=== PATIENT | female | born 1955 | race Caucasian/White ===

== ENCOUNTER → 2017-07-12 | Outpatient (CLI) | payer OTHER ==
[2015-05-20 10:51] VITALS: BMI 33.6
[~2017-07-12] MED LIST: ALB17R INH; ALB6.7R INH; AMLO2.5T74 PO; ARMO250T5 PO; ATOR10TA24 PO; AZI250 PO; AZIT500T47 PO; BACDS PO; BIS5 PO; BUDE10.25 IH; CEP500 PO; CHOL100062 PO; CHOL500045 PO; CIP500 PO; CIPR-212 PO; CIPR500S3 PO; CLON1 PO; CPAP; DIPH-464 PO; DOXY150T6 PO; ENOX40DI8 SQ; EPIN0.3P14 IM; FAMO-67 PO; FAMO20TA28 PO; FENO145T36 PO; FLU10 PO; FLU220R INH; FOLI-68 PO; FUR20 PO; FURO-43 PO; GUAI600T57 PO; GUALA600 PO; HYDR-389 PO; IBUP600T22 PO; LEV500 PO; MAGN296S35 PO; METF-410 PO; NIAC500T84 PO; OFF COUMADIN FOR OR; OMEP-218 PO; OXYC-717 PO; OXYC-865 PO; OXYG1EAC MC; OXYGEN INH; PER PO; PHEN200T32 PO; POTASSIUM PO; PRE10 PO; PRED20TA6 PO; PRO25 PO; ROPI0.5T24 PO; ROPI0.5T25 PO; TIO18R INH; TRI100 FT; WAR5 PO; WARF-1 PO; WARF-12 PO; [UNRECOGNIZED DRUG - OTHER]
[2017-07-12 11:57] LABS: INR 1.7
== END ==
LOC: LAB 11:00
PROVIDERS: ATTEND Family Medicine
DX: D64.9 Anemia, unspecified (principal); D86.0 Sarcoidosis of lung; I10 Essential (primary) hypertension; E11.65 Type 2 diabetes mellitus with hyperglycemia; E55.9 Vitamin D deficiency, unspecified; Z79.01 Long term (current) use of anticoagulants
CPT/HCPCS: 36415; 82040; 82043; 82247; 82306; 82310; 82374; 82435; 82465; 82565; 82947; 83036; 83718; 84075; 84132; 84155; 84295; 84450; 84460; 84478; 84520; 85027; 85610

== ENCOUNTER → 2017-07-12 | Outpatient (CLI) | payer OTHER ==
[2015-05-20 10:51] VITALS: BMI 33.6
--- NOTE | 2017-07-12 12:53 | RADIOLOGY IMAGING REPORT ---
FACILITY: [facility] [place] PATIENT NAME: Karis Fournier : 1955 MR: [id number] V: [id number] EXAM DATE: ORDERING PHYSICIAN: HAI FLETCHER TECHNOLOGIST: Location: [facility] [place] Patient: Karis Fournier : 1955 Visit/Account:[id number] Date of Sevice: 07/12/2017 CHEST W/O CONTRAST History: Pulmonary nodules TECHNIQUE: Contiguous axial images were performed through the chest to the level of the adrenal gla nds. No IV contrast was administered. Coronal and sagittal reformatting was also performed. COMPARISON STUDIES: June 06, 2015. Lungs / Pleura: There is an 8 x 5 mm noncalcified nodule in the lateral sulcus of the right lower l obe best seen on image 82 of series 3 and appears unchanged. There is a 2 mm subpleural nodule later al aspect right lower lobe best seen on image 62. This also appears unchanged There is a 9 mm groundglass opacity in the lateral aspect of the right lower lobe best seen on image 66. This is a new finding when compared to the prior study. The previously noted consolidation in the posterior right upper lobe has resolved. Mediastinum/nodes: Again noted are multiple 10-15 mm mediastinal and hilar lymph nodes appear simila r to the prior study Heart and vessels: Moderate atherosclerotic calcifications are identified in the thoracic aortic arc h and branch vessels. Advanced coronary artery vascular calcifications are present. Musculoskeletal / Body wall: Moderate spondylotic changes of the thoracic spine Upper abdomen: Visualized abdominal viscera negative. IMPRESSION: Previously noted right upper lobe interstitial pulmonary infiltrate has resolved There are pulmonary nodules measuring up to 8 mm that have remained stable For multiple nodules measu ring 6 to 8 mm in size in a low risk patient, CT follow-up is recommended in 3-6 months, then conside r CT at 18-24 months. For a high risk patient, CT follow-up is recommended at 3-6 months, then at 18- 24 months.. There is a 9 mm groundglass opacity lateral right lower lobe not present previously coul d represent a small focal area of inflammation or infection. For groundglass nodules greater than or equal to 6 mm, CT in 6-12 months to confirm persistence is recommended, then CT every 2 years until 5 years is recommended. Mild mediastinal adenopathy unchanged Extensive atherosclerosis Report Dictated By: Jeannette Mario MD at 07/12/2017 12:29 PM Report E-Signed By: Jeannette Mario MD at 07/12/2017 12:49 PM HILDAN:GORDON
== END ==
LOC: CT 00:46
PROVIDERS: ATTEND Internal Medicine
DX: I25.10 Atherosclerotic heart disease of native coronary artery without angina pectoris (principal); R91.8 Other nonspecific abnormal finding of lung field
CPT/HCPCS: 71250

== ENCOUNTER → 2017-08-02 | Outpatient (CLI) | payer OTHER ==
[2015-05-20 10:51] VITALS: BMI 33.6
--- NOTE | 2017-08-02 16:01 | RADIOLOGY IMAGING REPORT ---
FACILITY: [facility] PATIENT NAME: Karis Fournier : 1955 MR: [id number] V: [id number] EXAM DATE: ORDERING PHYSICIAN: HAYDEE SANCHEZ TECHNOLOGIST: Location: [facility] Patient: Karis Fournier : 1955 Visit/Account:[id number] Date of Sevice: 08/02/2017 CAROTID HISTORY: Bilateral carotid bruits, left neck mass COMPARISON: None. FINDINGS: Grayscale, duplex and color Doppler interrogation of the extracranial carotid and vertebral arteries was performed bilateral. On the right, peak systolic velocities within the common and internal carotid arteries are 118 and 89 cm/sec respectively. There is a small amount of hard plaque in the proximal right internal and exte rnal carotid arteries. Antegrade flow within the common, internal and external carotid arteries as w ell as vertebral artery. ICA/CCA ratio 0.7. On the left, peak systolic velocities within the common and internal carotid arteries are 143 and 79 cm/sec respectively. A small amount of plaque is seen in the left internal carotid artery. Antegrad e flow within the common, internal and external carotid arteries as well as vertebral artery. ICA/CCA ratio 0.7. IMPRESSION: Small amount of plaque seen in the internal carotid arteries bilaterally and right external carotid a rtery although no hemodynamically significant lesions seen in the IACs or vertebral arteries. Velocity criteria are extrapolated from diameter data as defined by the Society of Radiologists in [facility] Consensus Conference Radiology 2003; 229;340-346 Report Dictated By: Jeannette Mario MD at 08/02/2017 3:56 PM Report E-Signed By: Jeannette Mario MD at 08/02/2017 3:57 PM WSN:[email or web address]
== END ==
LOC: US 07:04
PROVIDERS: ATTEND Family Medicine
DX: I65.23 Occlusion and stenosis of bilateral carotid arteries (principal)
CPT/HCPCS: 93880

== ENCOUNTER → 2017-12-21 | Outpatient (CLI) | payer OTHER ==
[2015-05-20 10:51] VITALS: BMI 33.6
[~2017-12-21] MED LIST changes: -METF-410 PO; +METF-411 PO
[2017-12-21 14:55] LABS: INR 2.11
== END ==
LOC: LAB 14:13
PROVIDERS: ATTEND Family Medicine
DX: I10 Essential (primary) hypertension (principal); E11.65 Type 2 diabetes mellitus with hyperglycemia; E55.9 Vitamin D deficiency, unspecified; Z79.01 Long term (current) use of anticoagulants; E86.0 Dehydration
CPT/HCPCS: 36415; 82040; 82043; 82247; 82306; 82310; 82374; 82435; 82465; 82565; 82947; 83036; 83718; 84075; 84132; 84155; 84295; 84450; 84460; 84478; 84520; 85027; 85610

== ENCOUNTER → 2018-04-03 | Outpatient (CLI) | payer OTHER ==
[2015-05-20 10:51] VITALS: BMI 33.6
[~2018-04-03] MED LIST changes: -METF-411 PO; +METF-450 PO
== END ==
LOC: US 03:48
PROVIDERS: ATTEND Internal Medicine
DX: R01.1 Cardiac murmur, unspecified (principal); I51.7 Cardiomegaly; I35.1 Nonrheumatic aortic (valve) insufficiency
CPT/HCPCS: 93306

== ENCOUNTER 2018-05-01 09:54 | Outpatient (RCR) | payer OTHER ==
[2015-05-20 10:51] VITALS: BMI 33.6
--- NOTE | 2018-04-11 08:17 | PT INITIAL EVALUATION ---
MEDICAL DIAGNOSIS: R knee pain and swelling TREATMENT DIAGNOSIS: Same, question of R MMT, lateral compartment cartilage tear DATE OF ONSET: 03/27/18 SUBJECTIVE: Karis Fournier presents to PT for R knee pain and swelling after stepping down steps at home, feeling a pop and sharp knee pain.. . Pain location is R anterior, medial and lateral R knee and described as sharp grab, ache. Pain scale is 3 on a ten point pain scale. Pain is worse with shoveling, mopping, trying to use stairs (non-reciprocating gait) and better with rest. REHAB PROBLEM LIST: Increased Pain Decreased ROM Decreased Strength Impaired Transfers Decreased Balance Decreased Mobility Decreased Gait PREVIOUS MEDICAL HISTORY: Chron's disease, R ACL reconstruction, DVT's (Coumadin), hematoma with wound care, septal defect, CPAP with 2 l/min at night OCCUPATION: Artist, self-employed. OBJECTIVE: Posture: WB more through L LE. ROM: A/PROM R knee -10/-10- 110/115 deg. , L knee 0/0- 120/125 degrees. Strength: R quad 4/5, L 5/5. R VMO minimal contraction, lateral tracking patella. Palpation: Painful R MCL, LCL, anterior horn of medial meniscus, lateral patellofemoral joint line. Pain with lateral femoral condyle cartilage palpation. R knee joint line and suprapatellar recess moderate edema. Special Tests: Positive R Tian's for clicking and pain, clicking and pain with lateral patellofemoral glides. Negative R ACL drawer and Lachmann's. Mobility: Sit to stand with R knee pain. Gait: Reduced R LE loading in R stance, shorter R step length. Balance: Double limb support. ASSESSMENT: Karis Fournier presents with possible R MMT, lateral patellar cartilage tear, acute phase of healing. She had knee stiffness with ROM and had less pain with e-stim after. Short Term Goals 4 weeks: Karis uses stairs with a reciprocating gait, R knee pain 1-2/10. 6 weeks: Short distance community ambulator without R knee pain, shovels snow, mops without R knee pain. Patient's Goals Avoid surgery, mop and shovel snow without R knee pain. PLAN: Patient to be seen for Manual Therapy/STM/MET Strengthening/condition Ice/Heat Range of Motion Stretching Neuromuscular Re-ed Electrical Stim Gait Trg/Balance Trg Home Exercise Program 2-3x/week for 6 Weeks Thank you for this referral. If you have any questions, comments, or concerns about this report or plan, please contact me at . [email or web address]
--- NOTE | 2018-05-26 11:39 | PT PLAN OF CARE ---
Physician: Dr. Saqib Corrales Patient is being seen: 2x/week Therapist: Deneen proctor, PT Medical Diagnosis: R knee pain and swelling Treatment Diagnosis: Same, question of R MMT, lateral compartment cartilage tear Date of Onset: 03/27/18 Date of Initial Evaluation: 04/10/18 Date patient was last seen: 05/01/19 Number of treatments: 6 Number of cancellations/No shows: 1 INTERVENTIONS: Manual Therapy Strengthening/condition Range of Motion Stretching Electrical Stim Home Exercise Program GOALS: met: 4 weeks: Karis uses stairs with a reciprocating gait, R knee pain -06/11. 6 weeks: Short distance community ambulator without R knee pain, shovels snow, mops without R knee pain. PATIENT'S GOAL: Avoid surgery, mop and shovel snow without R knee pain. all met Patient Compliance: Excellent Prognosis: Excellent Reasons for continuing therapy: S: Karis denied R knee pain at her last appointment 05/01/18. She was hospitalized for diverticulitis on 05/03/18 and hasn't returned to PT. Her phone didn't go to Search to Phoneil when I tried calling her. O: At her last visit, R knee edema was resolved, gait was normal and Karis was strengthening well. A/P: Karis Fournier did well with R knee PT. She has bigger health concerns right now. I'll DC PT. Thank you. RYAN
== END 2018-05-01 18:00 | disposition home or self-care (01) ==
LOC: PT 09:54
PROVIDERS: ATTEND Orthopaedic Surgery
DX: M25.561 Pain in right knee (principal); M25.469 Effusion, unspecified knee; S83.241A Other tear of medial meniscus, current injury, right knee, initial encounter
CPT/HCPCS: 97162

== ENCOUNTER 2018-05-03 16:58 | Inpatient (IN) | payer OTHER ==
[~2018-05-03] VITALS: Ht 158.8 cm; Wt 101.5 kg
[2018-05-03] MEDS ORDERED: NS(*) 0.9% 1000 ML BAG 1,000 ML IV ONE (17:12)
[2018-05-03] MEDS ORDERED: ONDANSETRON 4 MG/2 ML VIAL IVP ONE (17:15)
--- NOTE | 2018-05-03 17:20 | ER Report ---
History and Physical Time Seen By MD: 17:16 Hx. of Stated Complaint: severe abd pain cathy groin pain (JD ZULUAGA MD) HPI/ROS CHIEF COMPLAINT: Abdominal pain HISTORY OF PRESENT ILLNESS: 62-year-old morbidly obese female history of COPD and obstructive sleep apnea come to the emergency department today with a complaint of abdominal pain. Patient states 2-3 days prior to presentation was startled by her turned abruptly and felt a pop in her abdomen also based on history of colitis. Patient states abdominal pain is been the bilateral lower suprapubic region she said that she's had increased frequency of urination and one episode of loose stool pain is localized again to the right and left iliac and inguinal areas without radiation made worse with motion or mobility she says she is also decreased by mouth intake denies any chest pain at this time denies fever chills or sweats no epigastric or upper bowel discomfort pain is localized down in the inguinal regions. On arrival to the emergency department she was noted to be hypoxic with an O2 saturation at 81-82% she does not use supplem ental home but does use CPAP at night REVIEW OF SYSTEMS: Respiratory: No cough, no dyspnea. Cardiovascular: No chest pain, no palpitations. Gastrointestinal: No vomiting, no abdominal pain. Musculoskeletal: No back pain. Remainder of the 14 system rev: Yes (JD ZULUAGA MD) Allergies: Coded Allergies: levofloxacin (Verified Allergy, Intermediate, hives for 2 wks, 05/03/18) pt was on vancomycin and levaquin at the same time, she got hives that lasted two weeks, pt doesn't know if it was the vancomycin or levaquin that caused the rash vancomycin (Verified Allergy, Intermediate, RASH, 05/03/18) cephalexin (Verified Allergy, Mild, 05/03/18) iodine (Verified Allergy, Mild, 05/03/18) niacin (Verified Adverse Reaction, Intermediate, 05/03/18) Penicillins (Verified Adverse Reaction, Mild, RASH, 05/03/18) metoclopramide (Verified Adverse Reaction, Mild, N&V, 05/03/18) Home Meds Active Scripts Guaifenesin (MUCINEX) 600 Mg Tablet.er, 600 MG PO BID, #30 TAB 0 Refills Prov:JAVON JIANG MD 06/04/15 Folic Acid (FOLIC ACID) 1 Mg Tablet, 1 MG PO BID, #60 TAB 1 Refill Prov:JAVON JIANG MD 06/04/15 Reported Medications Varenicline Tartrate (CHANTIX) 0.5 Mg Tab, 1 MG PO BID, TAB 05/03/18 Metformin Hcl (METFORMIN HCL) 500 Mg Tablet, 0.5 TAB PO DAILY, TAB 05/03/18 Diphenhydramine Hcl (BENADRYL) 25 Mg Capsule, 25 MG PO BID, CAPSULE 05/03/18 Atorvastatin Calcium (LIPITOR) 10 Mg Tablet, 1 TAB PO QDAY, TAB 07/25/15 Tiotropium [place] (SPIRIVA) 18 Mcg/Cap Inh, 18 MCG INH DAILY, INH 07/25/15 Cholecalciferol (Vitamin D3) (VITAMIN D) 10,000 Unit Capsule, 67659 UNIT PO QWEEKF, CAPSULE 05/19/15 Budesonide/Formoterol Fumarate (SYMBICORT 80-4.5 MCG INHALER) 10.2 Gm Hfa.aer.ad, 10.2 GM IH BID, #2 PUFF 01/16/15 Fenofibrate Nanocrystallized (FENOFIBRATE) 145 Mg Tablet, 145 MG PO QDAY 01/16/15 Warfarin Sodium (COUMADIN) 5 Mg Tablet, 4.5 MG PO QDAY 01/16/15 Amlodipine Besylate (Amlodipine Besylate) 2.5 Mg Tablet, 2.5 MG PO BID, 0 Refills 03/17/11 Furosemide (Lasix) 20 Mg Tab, 20 MG PO QDAY, 0 Refills 03/17/11 Albuterol Sulfate (Proventil Hfa) 6.7 Gm Aer.w.adap, 1-2 PUFF INH QID PRN for SHORTNESS OF BREATH, 0 Refills 03/17/11 Armodafinil (Nuvigil) 250 Mg Tablet, 250 MG PO QDAY, 0 Refills 03/17/11 Discontinued Reported Medications Ibuprofen (IBUPROFEN) 600 Mg Tablet, 1 TAB PO TID PRN for pain, #30 TAB 08/04/15 Phenazopyridine Hcl (PHENAZOPYRIDINE HCL) 200 Mg Tablet, 200 MG PO TID PRN for dysuria, #20 TAB 08/04/15 Famotidine (PEPCID) 20 Mg Tablet, 20 MG PO BID for antacid, #20 TAB 08/04/15 Famotidine (FAMOTIDINE) 20 Mg Tablet, 20 MG PO QDAY, TAB 08/04/15 Acetaminophen/Hydrocodone (HYDROCODON-ACETAMINOPH 7.5-325) 1 Each Ea, 1 EACH PO Q4-6H PRN for pain, #20 EA 08/04/15 Trimethoprim (TRIMETHOPRIM) 100 Mg Tab, 100 MG FT BID, #20 TAB 08/04/15 Past Medical/Surgical History (1) DELILAH on CPAP Status: Chronic (2) DVT (deep venous thrombosis) Status: Chronic (3) PE (pulmonary embolism) Status: Chronic (4) Septal defect, heart Status: Chronic (5) Essential (primary) hypertension Status: Chronic (6) COPD (chronic obstructive pulmonary disease) Status: Chronic (7) Crohns disease Status: Chronic (8) History of cholecystectomy Status: Chronic (9) History of appendectomy Status: Chronic (10) History of hysterectomy Status: Chronic (KATHIA PARADA DO) Reviewed Nurses Notes: Yes Old Medical Records Reviewed: Yes (JD ZULUAGA MD) Hx Smoking: Yes (1 PPD X 40 YRS.) Smoking Status: Current: Every Day Smoker Exposure to Second Hand Smoke?: No Hx Substance Use Disorder: No Hx Alcohol Use: No (JD ZULUAGA MD) Constitutional Vital Sign - Last 24 Hours 05/03/18 05/03/18 05/03/18 05/03/18 16:58 17:07 17:07 17:09 Temp 100.0 Pulse 111 109 Resp 26 24 B/P (MAP) 166/70 (102) 166/70 Pulse Ox 79 79 O2 Delivery Room Air Room Air O2 Flow Rate 6.0 05/03/18 05/03/18 05/03/18 05/03/18 17:15 17:28 17:30 17:58 Pulse 93 88 Resp 29 24 B/P (MAP) 144/60 (88) 143/62 (89) Pulse Ox 95 96 O2 Delivery Oxy Mask Oxy Mask O2 Flow Rate 6 6 05/03/18 05/03/18 05/03/18 05/03/18 18:00 18:05 18:30 18:35 Pulse 96 97 Resp 29 25 B/P (MAP) 135/59 (84) 142/65 (90) Pulse Ox 96 91 O2 Delivery Oxy Mask Oxy Mask O2 Flow Rate 3 3 05/03/18 05/03/18 05/03/18 05/03/18 18:40 18:55 19:00 19:10 Pulse 96 95 90 Resp 24 21 23 B/P (MAP) 146/73 (97) Pulse Ox 93 94 92 O2 Delivery Oxy Mask Oxy Mask Oxy Mask O2 Flow Rate 3 3 3 05/03/18 05/03/18 05/03/18 05/03/18 19:15 19:30 19:45 20:00 Pulse 98 93 86 94 Resp 20 25 37 19 B/P (MAP) 142/77 (98) 138/61 (86) Pulse Ox 89 91 91 91 O2 Delivery Oxy Mask Oxy Mask Oxy Mask Oxy Mask O2 Flow Rate 3 3 3 3 05/03/18 20:05 Pulse 92 Resp 21 Pulse Ox 92 O2 Delivery Oxy Mask O2 Flow Rate 3 (KATHIA PARADA DO) Physical Exam General Appearance: The patient is alert, has no immediate need for airway protection and no current signs of toxicity. In no distress but appears uncomfortable Eyes: Pupils equal and round no injection. Respiratory: Chest is non tender, lungs are clear to auscultation. Cardiac: regular rate and rhythm [ ] Gastrointestinal: Abdomen examination does demonstrate some tenderness to the bilateral lower inguinal area mild guarding no rebound no masses noted normal bowel sounds opening the epigastrium or other 3 quadrants patient otherwise negative examination Musculoskeletal: Neck: Neck is supple and non tender. Extremities have full range of motion and are non tender. Skin: No rashes or lesions. [ ] DIFFERENTIAL DIAGNOSIS: After history and physical exam differential diagnosis was considered for perfect bowel ischemic bowel traumatic bowel perforation (JD ZULUAGA MD) Medical Decision Making Data Points Result Diagram: 05/03/18 1722 05/03/18 1722 Laboratory Hematology Test 05/03/18 17:22 05/03/18 17:50 05/03/18 18:40 Red Blood Count 5.24 M/uL (4.17-5.56) Mean Corpuscular Volume 88.7 fL (80.0-96.0) Mean Corpuscular Hemoglobin 30.0 pg (26.0-33.0) Mean Corpuscular Hemoglobin Concent 33.8 g/dL (32.0-36.0) Red Cell Distribution Width 14.9 % (11.5-14.5) Mean Platelet Volume 7.8 fL (7.2-11.1) Neutrophils (%) (Auto) 86.6 % (39.4-72.5) Lymphocytes (%) (Auto) 6.6 % (17.6-49.6) Monocytes (%) (Auto) 6.2 % (4.1-12.4) Eosinophils (%) (Auto) 0.1 % (0.4-6.7) Basophils (%) (Auto) 0.5 % (0.3-1.4) Nucleated RBC Relative Count (auto) 0.0 /100WBC Neutrophils # (Auto) 13.2 K/uL (2.0-7.4) Lymphocytes # (Auto) 1.0 K/uL (1.3-3.6) Monocytes # (Auto) 0.9 K/uL (0.3-1.0) Eosinophils # (Auto) 0.0 K/uL (0.0-0.5) Basophils # (Auto) 0.1 K/uL (0.0-0.1) Nucleated RBC Absolute Count (auto) 0.00 K/uL Peripheral Blood Smear Yes Y/N Prothrombin Time 19.1 seconds (12.0-14.4) Prothromb Time International Ratio 1.59 Activated Partial Thromboplast Time 42 seconds (23-35) D-Dimer Quantitative (PE/DVT) 0.68 ug/ml (0-0.50) Sodium Level 137 mmol/L (137-145) Potassium Level 3.7 mmol/L (3.5-5.0) Chloride Level 105 mmol/L (98-107) Carbon Dioxide Level 23 mmol/L (22-31) Blood Urea Nitrogen 20 mg/dl (7-18) Creatinine 1.20 mg/dl (0.52-1.04) Glomerular Filtration Rate Calc 45.7 Random Glucose 132 mg/dl (75-110) Lactate 1.7 mmol/L (0.7-2.1) Calcium Level 9.9 mg/dl (8.4-10.2) Total Bilirubin 1.7 mg/dl (0.2-1.3) Aspartate Amino Transf (AST/SGOT) 21 U/L (0-35) Alanine Aminotransferase (ALT/SGPT) 23 U/L (0-56) Alkaline Phosphatase 66 U/L (0-126) Troponin I 0.015 ng/ml B-Type Natriuretic Peptide 199 pg/ml (0-100) Total Protein 7.6 g/dl (6.3-8.2) Albumin 4.0 g/dl (3.5-5.0) Lipase 54 U/L (23-300) Blood Gas Puncture Site Left radial Blood Gas Patient Temperature 100 DEGREES Arterial Blood pH 7.38 (7.35-7.45) Arterial Blood Partial Pressure CO2 36 mmHg (32-37) Arterial Blood Partial Pressure O2 94 mmHg (60-80) Arterial Blood HCO3 21 mmol/L (20-26) Arterial Blood Oxygen Saturation 96 % (92-100) Arterial Blood Base Excess -4.0 mmol/L Reddy Test Acceptable Oxygen Liters/Minute 39 Urine Color [place] Urine Clarity Cloudy Urine pH 5.0 pH (4.8-9.5) Urine Specific [place] 1.031 Urine Protein 500 mg/dL (NEGATIVE) Urine Glucose (UA) Negative mg/dL (NEGATIVE) Urine Ketones Negative mg/dL (NEGATIVE) Urine Blood Small (NEGATIVE) Urine Nitrite Negative (NEGATIVE) Urine Bilirubin Negative (NEGATIVE) Urine Urobilinogen Negative mg/dL (0.2-1.9) Urine Leukocyte Esterase Negative (NEGATIVE) Urine RBC 1 /HPF (0-2/HPF) Urine WBC 5 /HPF (0-5/HPF) Urine Squamous Epithelial Cells Many /LPF (NONE-FEW) Urine Amorphous Crystals Few /HPF Urine Bacteria Few /HPF (NONE-FEW) Urine Mucus Few /HPF (NONE-FEW) Chemistry Test 05/03/18 17:22 05/03/18 17:50 05/03/18 18:40 White Blood Count 15.3 k/uL (4.5-11.0) Red Blood Count 5.24 M/uL (4.17-5.56) Hemoglobin 15.7 g/dL (12.0-16.0) Hematocrit 46.5 % (34.0-47.0) Mean Corpuscular Volume 88.7 fL (80.0-96.0) Mean Corpuscular Hemoglobin 30.0 pg (26.0-33.0) Mean Corpuscular Hemoglobin Concent 33.8 g/dL (32.0-36.0) Red Cell Distribution Width 14.9 % (11.5-14.5) Platelet Count 196 K/uL (150-450) Mean Platelet Volume 7.8 fL (7.2-11.1) Neutrophils (%) (Auto) 86.6 % (39.4-72.5) Lymphocytes (%) (Auto) 6.6 % (17.6-49.6) Monocytes (%) (Auto) 6.2 % (4.1-12.4) Eosinophils (%) (Auto) 0.1 % (0.4-6.7) Basophils (%) (Auto) 0.5 % (0.3-1.4) Nucleated RBC Relative Count (auto) 0.0 /100WBC Neutrophils # (Auto) 13.2 K/uL (2.0-7.4) Lymphocytes # (Auto) 1.0 K/uL (1.3-3.6) Monocytes # (Auto) 0.9 K/uL (0.3-1.0) Eosinophils # (Auto) 0.0 K/uL (0.0-0.5) Basophils # (Auto) 0.1 K/uL (0.0-0.1) Nucleated RBC Absolute Count (auto) 0.00 K/uL Peripheral Blood Smear Yes Y/N Prothrombin Time 19.1 seconds (12.0-14.4) Prothromb Time International Ratio 1.59 Activated Partial Thromboplast Time 42 seconds (23-35) D-Dimer Quantitative (PE/DVT) 0.68 ug/ml (0-0.50) Glomerular Filtration Rate Calc 45.7 Lactate 1.7 mmol/L (0.7-2.1) Calcium Level 9.9 mg/dl (8.4-10.2) Total Bilirubin 1.7 mg/dl (0.2-1.3) Aspartate Amino Transf (AST/SGOT) 21 U/L (0-35) Alanine Aminotransferase (ALT/SGPT) 23 U/L (0-56) Alkaline Phosphatase 66 U/L (0-126) Troponin I 0.015 ng/ml B-Type Natriuretic Peptide 199 pg/ml (0-100) Total Protein 7.6 g/dl (6.3-8.2) Albumin 4.0 g/dl (3.5-5.0) Lipase 54 U/L (23-300) Blood Gas Puncture Site Left radial Blood Gas Patient Temperature 100 DEGREES Arterial Blood pH 7.38 (7.35-7.45) Arterial Blood Partial Pressure CO2 36 mmHg (32-37) Arterial Blood Partial Pressure O2 94 mmHg (60-80) Arterial Blood HCO3 21 mmol/L (20-26) Arterial Blood Oxygen Saturation 96 % (92-100) Arterial Blood Base Excess -4.0 mmol/L Reddy Test Acceptable Oxygen Liters/Minute 39 Urine Color [place] Urine Clarity Cloudy Urine pH 5.0 pH (4.8-9.5) Urine Specific [place] 1.031 Urine Protein 500 mg/dL (NEGATIVE) Urine Glucose (UA) Negative mg/dL (NEGATIVE) Urine Ketones Negative mg/dL (NEGATIVE) Urine Blood Small (NEGATIVE) Urine Nitrite Negative (NEGATIVE) Urine Bilirubin Negative (NEGATIVE) Urine Urobilinogen Negative mg/dL (0.2-1.9) Urine Leukocyte Esterase Negative (NEGATIVE) Urine RBC 1 /HPF (0-2/HPF) Urine WBC 5 /HPF (0-5/HPF) Urine Squamous Epithelial Cells Many /LPF (NONE-FEW) Urine Amorphous Crystals Few /HPF Urine Bacteria Few /HPF (NONE-FEW) Urine Mucus Few /HPF (NONE-FEW) Coagulation Test 05/03/18 17:22 Prothrombin Time 19.1 seconds Prothromb Time International Ratio 1.59 Activated Partial Thromboplast Time 42 seconds D-Dimer Quantitative (PE/DVT) 0.68 ug/ml Urinalysis Test 05/03/18 18:40 Urine Color [place] Urine Clarity Cloudy Urine pH 5.0 pH (4.8-9.5) Urine Specific [place] 1.031 Urine Protein 500 mg/dL (NEGATIVE) Urine Glucose (UA) Negative mg/dL (NEGATIVE) Urine Ketones Negative mg/dL (NEGATIVE) Urine Blood Small (NEGATIVE) Urine Nitrite Negative (NEGATIVE) Urine Bilirubin Negative (NEGATIVE) Urine Urobilinogen Negative mg/dL (0.2-1.9) Urine Leukocyte Esterase Negative (NEGATIVE) Urine RBC 1 /HPF (0-2/HPF) Urine WBC 5 /HPF (0-5/HPF) Urine Squamous Epithelial Cells Many /LPF (NONE-FEW) Urine Amorphous Crystals Few /HPF Urine Bacteria Few /HPF (NONE-FEW) Urine Mucus Few /HPF (NONE-FEW) (KATHIA PARADA DO) EKG/Imaging Imaging X-ray: Two-view chest x-ray was obtained. I viewed the images myself on the PACS system. My interpretation of the images is: No infiltrate, no effusion, normal mediastinum. The radiologist interpretation had no clinically significant variation from this interpretation. Results: CT scan of the balloon pelvis without contrast was obtained. The results of the study are CT abdomen and pelvis without contrast Indication: Abdominal pain. Comparison: 05/22/2015. Technique: Axial CT images are obtained through the abdomen and pelvis. Reformatted coronal and sagittal images were reviewed. IV contrast was not administered. One of the following dose optimization techniques was utilized in the performance of this exam: automated exposure control; adjustment of the mA and/or kV according to the patient's size; or use of an iterative reconstruction technique. Specific details can be referenced in the facility's radiology CT exam operational policy. Findings: Lower lung malin: Mild dependent atelectasis, otherwise clear. Evaluation of the solid organs of the abdomen is limited without IV contrast. Liver: Diffusely hypodense without focal abnormality. Biliary: Gallbladder is not visualized may been surgically removed. The common bile duct and biliary system unremarkable postcholecystectomy. Pancreas: No focal abnormality. Spleen: Normal appearance. Adrenal glands: Unremarkable. Kidneys / retroperitoneum: No evidence of nephrolithiasis or hydronephrosis. No focal normality. Bowel / peritoneum / mesenteries: Multiple diverticula are seen along the descending sigmoid colon. The mid sigmoid colon does show pericolonic inflammation and a small developing abscess measuring 1.7 x 1.1 cm anteriorly in the mesentery. No other focal abnormality of the colon. The appendix is not definitely visualized. The small bowel shows no focal normality or obstruction. The stomach is unremarkable. No other fluid collection or areas of inflammation. No free air or free fluid. Lymph node assessment: No pathologic adenopathy identified. Pelvic structures: Pelvic structures visualized within normal limits. Vessels: Mild atherosclerotic calcifications seen throughout a nonaneurysmal abdominal aorta and branches. Musculoskeletal / Body wall: No acute or aggressive osseous abnormality. Degene rative changes spine. IMPRESSION: 1. Sigmoid diverticulitis. There is a small developing abscess in the central mesentery anterior to the mid sigmoid colon consistent with a microperforation. This measures 1.7 cm. 2. Diffusely hypodense liver consistent with fatty infiltration or chronic d isease. No focal abnormality. 3. Other chronic stable findings as above. The study was read by the radiologist. I viewed the images myself on the PACS system. (KATHIA PARADA DO) ED Course/Re-evaluation ED Course Care was assumed at shift change from Dr. Zuluaga with diagnostic CT pending of the patient's abdomen for her several days of abdominal pain. Patient felt a popping sensation when she twisted 2 days ago. She notes no fever or chills. She's had no vomiting or diarrhea. She's had no dysuria. She is status post appendectomy, hysterectomy and cholecystectomy. Patient's CT shows a microperforation of a diverticuli in the mid sigmoid colon with approximately 1.7 cm abscess. Case was discussed with Dr. Jeannine Xie, on-call general surgery for consideration of admission for IV antibiotic treatment. 05/03/2018 7:06:00 pm case was discussed with Dr. Jeannine Xie general surgery on-call, who will come evaluate the patient. She will most likely need to be admitted and IV antibiotics administered. Decision to Disposition Date: May 03, 2018 Decision to Disposition Time: 18:59 (KATHIA PARADA DO) Depart Departure Latest Vital Signs Vital Signs Date Time Temp Pulse Resp B/P (MAP) Pulse Ox O2 Delivery O2 Flow Rate FiO2 05/03/18 20:05 92 21 92 Oxy Mask 3 05/03/18 20:00 138/61 (86) 05/03/18 17:09 100.0 (KATHIA PARADA DO) Impression: Primary Impression: Diverticulitis of intestine with perforation and abscess Additional Impressions: DELILAH on CPAP Crohns disease Chronic anticoagulation COPD (chronic obstructive pulmonary disease) Condition: Improved Disposition: Admitted from ER Referrals: HAYDEE SANCHEZ DO (PCP) Problem Qualifiers Primary Impression: Diverticulitis of intestine with perforation and abscess Diverticulitis site: large intestine Diverticulitis bleeding: without bleeding Qualified Codes: K57.20 - Diverticulitis of large intestine with perforation and abscess without bleeding Additional Impressions: Crohns disease Gastrointestinal tract location: unspecified location Digestive disease complication type: unspecified complication Qualified Codes: K50.919 - Crohn's disease, unspecified, with unspecified complications COPD (chronic obstructive pulmonary disease) COPD type: unspecified COPD Qualified Codes: J44.9 - Chronic obstructive pulmonary disease, unspecified JD ZULUAGA MD May 03, 2018 17:20 KATHIA PARADA DO May 03, 2018 19:01
[2018-05-03] MEDS ORDERED: IOPAMIDOL 76% 75 ML INFUS BTL 0 ML ONE (17:26)
[2018-05-03 17:53] LABS: INR 1.59
[2018-05-03 18:08] LABS: PLATELET COUNT, AUTOMATED 196 K/uL (150-450)
--- NOTE | 2018-05-03 18:39 | RADIOLOGY IMAGING REPORT ---
[place] [facility] [place] Karis Fournier : 1955 MR: [id number] V: [id number] EXAM DATE: ORDERING PHYSICIAN: JD ZULUAGA TECHNOLOGIST: Location: [facility] Patient: Karis Fournier : 1955 Visit/Account:[id number] Date of Sevice: 05/03/2018 2 VIEWS CHEST INDICATION: Abdominal pain. COMPARISON: 01/26/2017. FINDINGS: Cardiomediastinal silhouette and pulmonary vessels within normal limits. There is no focal infiltrate or lobar consolidation. There is no pneumothorax or pleural effusion. No discrete nodule. Upper abdomen is unremarkable. Mild eventration right hemidiaphragm which is not well appreciated pr eviously. No acute bony abnormality. IMPRESSION: 1. No acute cardiopulmonary process. Mild eventration right hemidiaphragm. This is not well appreci ated previously. Report Dictated By: Maxx Bolanos at 05/03/2018 6:33 PM Report E-Signed By: Maxx Bolanos at 05/03/2018 6:36 PM WSN:[email or web address]
--- NOTE | 2018-05-03 18:51 | RADIOLOGY IMAGING REPORT ---
FACILITY: [facility] PATIENT NAME: Karis Fournier : 1955 MR: [id number] V: [id number] EXAM DATE: ORDERING PHYSICIAN: JD ZULUAGA TECHNOLOGIST: [place] [facility] [place] Patient: Karis Fournier : 1955 Visit/Account:[id number] Date of Sevice: 05/03/2018 CT abdomen and pelvis without contrast Indication: Abdominal pain. Comparison: 05/22/2015. Technique: Axial CT images are obtained through the abdomen and pelvis. Reformatted coronal and sagit reginaldo images were reviewed. IV contrast was not administered. One of the following dose optimization techniques was utilized in the performance of this exam: auto mated exposure control; adjustment of the mA and/or kV according to the patient's size; or use of an iterative reconstruction technique. Specific details can be referenced in the facility's radiology C T exam operational policy. Findings: Lower lung malin: Mild dependent atelectasis, otherwise clear. Evaluation of the solid organs of the abdomen is limited without IV contrast. Liver: Diffusely hypodense without focal abnormality. Biliary: Gallbladder is not visualized may been surgically removed. The common bile duct and biliary system unremarkable postcholecystectomy. Pancreas: No focal abnormality. Spleen: Normal appearance. Adrenal glands: Unremarkable. Kidneys / retroperitoneum: No evidence of nephrolithiasis or hydronephrosis. No focal normality. Bowel / peritoneum / mesenteries: Multiple diverticula are seen along the descending sigmoid colon. The mid sigmoid colon does show pericolonic inflammation and a small developing abscess measuring 1.7 x 1.1 cm anteriorly in the mesentery. No other focal abnormality of the colon. The appendix is not definitely visualized. The small bowel shows no focal normality or obstruction. The stomach is unr emarkable. No other fluid collection or areas of inflammation. No free air or free fluid. Lymph node assessment: No pathologic adenopathy identified. Pelvic structures: Pelvic structures visualized within normal limits. Vessels: Mild atherosclerotic calcifications seen throughout a nonaneurysmal abdominal aorta and bran ches. Musculoskeletal / Body wall: No acute or aggressive osseous abnormality. Degenerative changes spine. IMPRESSION: 1. Sigmoid diverticulitis. There is a small developing abscess in the central mesentery anterior to the mid sigmoid colon consistent with a microperforation. This measures 1.7 cm. 2. Diffusely hypodense liver consistent with fatty infiltration or chronic disease. No focal abnorm ality. 3. Other chronic stable findings as above. I called report to Dr. Girard at 05/03/2018 6:46 PM. Report Dictated By: Maxx Bolanos at 05/03/2018 6:36 PM Report E-Signed By: Maxx Bolanos at 05/03/2018 6:46 PM WSN:[email or web address]
[2018-05-03] MEDS ORDERED: fentaNYL CITR 100 MCG/2 ML AMP IVP ONE (19:05)
[2018-05-03] MEDS ORDERED: ERTAPENEM(*) 1 GM VIAL 1 GM in NS(*) 0.9% 100 ML ADDVANT BAG 100 ML IVPB ONE (19:45)
--- NOTE | 2018-05-03 20:06 | Gen Surgery History & Physical ---
History of Present Illness Chief Complaint Abdominal pain History of Present Illness 62yo female who presents with two days of abdominal pain. She reports that it has gotten worse, associated with nausea/vomiting and decreased ability to take PO. She denies fevers. Pain is located in the lower abdomen, left greater than right. She does have some chronic abdominal pain. She denies any history of pain like this previously. Her history is notable for Crohns, she controls this without medication, and using dietary modifications. Had a bad experience with 6MP and steroids in past. Previous colonoscopy remotely. Has been having GI function, some diarrhea, non bloody. Previous cholecystectomy (open) and appendectomy (open). History Unable To Obtain Past Medical: See documented history; crohns, sleep apnea, recurrent dvt/pe Home Meds Active Scripts Guaifenesin (MUCINEX) 600 Mg Tablet.er, 600 MG PO BID, #30 TAB 0 Refills Prov:JAVON JIANG MD 06/04/15 Folic Acid (FOLIC ACID) 1 Mg Tablet, 1 MG PO BID, #60 TAB 1 Refill Prov:JAVON JIANG MD 06/04/15 Reported Medications Atorvastatin Calcium (LIPITOR) 10 Mg Tablet, 1 TAB PO QDAY, TAB 07/25/15 Tiotropium [place] (SPIRIVA) 18 Mcg/Cap Inh, 18 MCG INH, INH 07/25/15 Cholecalciferol (Vitamin D3) (VITAMIN D) 10,000 Unit Capsule, 39904 UNIT PO QWE EKF, CAPSULE 05/19/15 Budesonide/Formoterol Fumarate (SYMBICORT 80-4.5 MCG INHALER) 10.2 Gm Hfa.aer.ad, 10.2 GM IH BID, #2 PUFF 01/16/15 Fenofibrate Nanocrystallized (FENOFIBRATE) 145 Mg Tablet, 145 MG PO QDAY 01/16/15 Warfarin Sodium (COUMADIN) 5 Mg Tablet, 4.5 MG PO QDAY 01/16/15 Amlodipine Besylate (Amlodipine Besylate) 2.5 Mg Tablet, 5 MG PO HS, 0 Refills 03/17/11 Furosemide (Lasix) 20 Mg Tab, 20 MG PO QDAY, 0 Refills 03/17/11 Albuterol Sulfate (Proventil Hfa) 6.7 Gm Aer.w.adap, 1-2 PUFF INH QID, 0 Refills 03/17/11 Armodafinil (Nuvigil) 250 Mg Tablet, 250 MG PO QDAY, 0 Refills 03/17/11 Discontinued Reported Medications Ibuprofen (IBUPROFEN) 600 Mg Tablet, 1 TAB PO TID PRN for pain, #30 TAB 08/04/15 Phenazopyridine Hcl (PHENAZOPYRIDINE HCL) 200 Mg Tablet, 200 MG PO TID PRN for dysuria, #20 TAB 08/04/15 Famotidine (PEPCID) 20 Mg Tablet, 20 MG PO BID for antacid, #20 TAB 08/04/15 Famotidine (FAMOTIDINE) 20 Mg Tablet, 20 MG PO QDAY, TAB 08/04/15 Acetaminophen/Hydrocodone (HYDROCODON-ACETAMINOPH 7.5-325) 1 Each Ea, 1 EACH PO Q4-6H PRN for pain, #20 EA 08/04/15 Trimethoprim (TRIMETHOPRIM) 100 Mg Tab, 100 MG FT BID, #20 TAB 08/04/15 Allergies: Coded Allergies: levofloxacin (Verified Allergy, Intermediate, hives for 2 wks, 05/03/18) pt was on vancomycin and levaquin at the same time, she got hives that lasted two weeks, pt doesn't know if it was the vancomycin or levaquin that caused the rash vancomycin (Verified Allergy, Intermediate, RASH, 05/03/18) cephalexin (Verified Allergy, Mild, 05/03/18) iodine (Verified Allergy, Mild, 05/03/18) niacin (Verified Adverse Reaction, Intermediate, 05/03/18) Penicillins (Verified Adverse Reaction, Mild, RASH, 05/03/18) metoclopramide (Verified Adverse Reaction, Mild, N&V, 05/03/18) Patient History: Parkinson's disease FATHER (Had Parkinson's, aspirated food on purpose), , Age:60 years and older Review of Systems Constitutional: No Fever Neurological: Weakness, Dizziness Cardiovascular: No Chest Pain, No Palpitations Respiratory: No Shortness of Breath, No Cough Gastrointestinal: Nausea, Vomiting, Diarrhea; No Hematemesis, No Hematochezia, No Melena; Abdominal Pain Genitourinary: Hematuria (intermittently, chronic) Exam General Appearance: Alert, Awake (mild distress) Neuro: No Gross deficits Eyes: PERRLA ENT: Moist Mucous Membranes Cardiovascular: Regular Rate and Rhythm Respiratory: No Respiratory Distress Chest: Other (soft, obese, tender to palpation in the LLQ, referred tenderness from RLQ; focal peritonitis; well healed previous subcostal incision; well healed previous lower midline incision) Extremities: Soft and Non Tender (AKIRA hose in place Bilaterally) Integumentary: Skin Intact without Lesion / Mass Psych: Alert & Oriented X3 Medical Decision Making Data Points Result Diagram: 05/03/18 1722 05/03/18 1722 EKG / Imaging Monitor Interpretation: Normal Sinus Rhythm Imaging CT Abdomen/Pelvis: diverticulosis with associated diverticulitis, some mesenteric stranding and a 1.7x 1.1cm mesenteric abscess Pre-Admit Course Medical Record Review: Yes Assessment and Plan Problems: (1) Diverticulitis of intestine with perforation and abscess Status: Acute Assessment & Plan: Diverticulitis: patient with first time episode of diverticulitis with small mesenteric abscess and focal peritonitis. At this time, the abscess is too small to be drained. Discussed with patient that we will place her on IV antibiotics and fluids with bowel rest. We discussed that were her symptoms not to improve with this management, or we were to find that the abscess was not resolving, she may ultimately require IR drainage. Discussed the potential for surgical intervention, although this is very low probability at this time. She and her had all questions answered. Invanz ordered due to PCN and fluoroquinolone allergy. Condition Stable. Time Spent: > 30 min Venous Thromboembolism VTE Risk Physician Assess for VTE Risk: Yes Patient's VTE Risk: High Antithrombotics Is Pt On Any Antithrombotics?: Yes Problem Qualifiers (1) Diverticulitis of intestine with perforation and abscess: Diverticulitis site: large intestine Diverticulitis bleeding: without bl eeding Qualified Codes: K57.20 - Diverticulitis of large intestine with perfo ration and abscess without bleeding BILL FABIAN MD May 03, 2018 20:06
[2018-05-03 20:44] VITALS: BP 143/53
[2018-05-03] MEDS ORDERED: METF-450 PO (20:59)
[2018-05-03] MEDS ORDERED: DIPH-740 PO (20:59)
[2018-05-03] MEDS: BUDESO/FORMOT 80/4.5 MCG 6.9GM INH SCH (21:00)
[2018-05-03] MEDS ORDERED: amLODIPine BESYL(*) 5 MG TAB PO SCH (21:00)
[2018-05-03] MEDS: KCL/D1/2NS 20 MEQ 1000 ML 1,000 ML IV PRN (21:04)
[2018-05-03] MEDS: MORPHINE 2 MG/ML SYR IVP PRN ×2 (21:05→23:43)
[2018-05-03] MEDS ORDERED: VAR05PT PO (21:43)
[2018-05-03] MEDS: amLODIPine BESYL(*) 5 MG TAB PO SCH (21:56)
[2018-05-03 23:31] VITALS: BP 136/58
[2018-05-04] MEDS: MORPHINE 2 MG/ML SYR IVP PRN ×3 (02:01→09:54)
[2018-05-04 04:16] VITALS: BP 127/58
--- NOTE | 2018-05-04 05:30 | EKG ---
FACILITY: [facility] PATIENT NAME: JADE GARCIA : [id number] MR: [id number] V: [id number] EXAM DATE: ORDERING PHYSICIAN: JD ZULUAGA TECHNOLOGIST: NASREEN Harkins Reason : Blood Pressure : / mmHG Vent. Rate : 094 BPM Atrial Rate : 094 BPM P-R Int : 152 ms QRS Dur : 090 ms QT Int : 348 ms P-R-T Axes : 059 052 122 degrees QTc Int : 435 ms Normal sinus rhythm Possible Left atrial enlargement ST and T wave abnormality, consider lateral ischemia Abnormal ECG When compared with ECG of 19-MAY-2015 21:09, T wave inversion now evident in Lateral leads Confirmed by Ino Espino ([id number]) on 05/04/2018 7:30:55 AM Referred By: Confirmed By:Ino Edwards
[2018-05-04] MEDS: KCL/D1/2NS 20 MEQ 1000 ML 1,000 ML IV PRN ×3 (05:39→22:18)
[2018-05-04] MEDS: ONDANSETRON 4 MG/2 ML VIAL IVP PRN ×2 (05:46→09:49)
[2018-05-04] MEDS: TIOTROPIUM BROM INH 18 MCG/CAP INH SCH (05:56)
[2018-05-04] MEDS: BUDESO/FORMOT 80/4.5 MCG 6.9GM INH SCH ×2 (05:56→17:42)
[2018-05-04 05:58] LABS: INR 1.71
[2018-05-04 06:00] LABS: PLATELET COUNT, AUTOMATED 166 K/uL (150-450)
[2018-05-04 07:12] VITALS: BP 127/58
[2018-05-04] MEDS: ATORVASTATIN 10 MG TAB PO SCH (08:23)
[2018-05-04] MEDS: amLODIPine BESYL(*) 5 MG TAB PO SCH ×2 (08:23→20:21)
[2018-05-04] MEDS: ENOXAPARIN 40 MG/0.4ML SYR SC SCH (08:23)
[2018-05-04] MEDS: FENOFIBRATE,MICRON 145 MG TAB PO SCH (08:23)
--- NOTE | 2018-05-04 08:26 | General Surgery Progress Note ---
Subjective Progress Notes Subjective Feeling about the same as yesterday evening. Nauseated this AM, no emesis, Zofran helped. Pain is stable, controlled with Morphine. Patient Complains of: Gastrointestinal: Nausea; No Vomiting Genitourinary: No Dysuria Physical Exam Vital Signs Date Time Temp Pulse Resp B/P (MAP) Pulse Ox O2 Delivery O2 Flow Rate FiO2 05/04/18 07:21 92 CPAP 2.5 05/04/18 07:12 99.4 85 26 127/58 (81) Intake and Output 05/04/18 07:00 Intake Total 2080 ml Balance 2080 ml Intake IV Total 2080 ml General Appearance: Alert, Awake, No Acute Distress Neuro: No Gross deficits Eyes: PERRLA Cardiovascular: Normal Rhythm & Peripheral Pulses Respiratory: No Respiratory Distress GI: Other (soft, obese, mild tenderness to palpation in LLQ and suprapubic region, stable) Extremities: Soft and Non Tender, Warm Integumentary: Skin Intact without Lesion / Mass Psych: Appropriate Mood & Affect Result Diagram: 05/04/18 0529 05/04/18528 Monitor Interpretation: Normal Sinus Rhythm Assessment and Plan Problems: (1) Diverticulitis of intestine with perforation and abscess Status: Acute Assessment & Plan: Diverticulitis: 05/03 (admit): Patient with first time episode of diverticulitis with small mesenteric abscess and focal peritonitis. At this time, the abscess is too small to be drained. Discussed with patient that we will place her on IV antibiotics and fluids with bowel rest. We discussed that were her symptoms not to improve with this management, or we were to find that the abscess was not resolving, she may ultimately require IR drainage. Discussed the potential for surgical intervention, although this is very low probability at this time. She and her had all questions answered. Invanz ordered due to PCN and fluoroquinolone allergy. 05/04: Pain stable but not much improved subjectively. Exam is slightly improved. WBC 12.8 (15.8). Continue NPO with ice chips, bowel rest, IVF @ 125ml/hr and Invanz. OOB TID. Cr normalized to 1.0 Time Spent: < 30 min Exam Sepsis Risk: No Definite Risk Problem Qualifiers (1) Diverticulitis of intestine with perforation and abscess: Diverticulitis site: large intestine Diverticulitis bleeding: without bleeding Qualified Codes: K57.20 - Diverticulitis of large intestine with perforation and abscess without bleeding BILL FABIAN MD May 04, 2018 08:26
[2018-05-04] MEDS ORDERED: ARMODAFINIL 250 MG PO SCH (09:00)
[2018-05-04] MEDS: PATIENT'S OWN MED PO SCH (09:15)
[2018-05-04 11:30] VITALS: BP 130/57
[2018-05-04 15:15] VITALS: BP 145/65
[2018-05-04] MEDS ORDERED: HYDROmorphone HCL 2 MG/ML SDV IVP PRN (15:50)
[2018-05-04 17:00] VITALS: Ht 158.8 cm; Wt 101.5 kg
[2018-05-04] MEDS: ERTAPENEM(*) 1 GM VIAL 0.5 GM in NS(*) 0.9% 50 ML BAG 50 ML IVPB SCH (19:36)
[2018-05-04 19:38] VITALS: BP 140/68
[2018-05-04 23:57] VITALS: BP 123/68
[2018-05-05 03:46] VITALS: BP 125/72
[2018-05-05] MEDS: KCL/D1/2NS 20 MEQ 1000 ML 1,000 ML IV PRN (06:05)
[2018-05-05] MEDS: BUDESO/FORMOT 80/4.5 MCG 6.9GM INH SCH ×2 (06:10→17:11)
[2018-05-05] MEDS: TIOTROPIUM BROM INH 18 MCG/CAP INH SCH (06:10)
[2018-05-05 06:11] LABS: PLATELET COUNT, AUTOMATED 172 K/uL (150-450)
[2018-05-05] MEDS: ALBUTEROL 8 GM INHALER INH PRN (06:12)
[2018-05-05 06:15] LABS: INR 1.62
[2018-05-05] MEDS ORDERED: KCL/D1/2NS 20 MEQ 1000 ML 1,000 ML IV PRN (06:58)
--- NOTE | 2018-05-05 07:03 | General Surgery Progress Note ---
Subjective Progress Notes Subjective Feeling better today. Pain improved. Dizziness stable, nausea improved. Wants to eat. Having loose BMs. Patient Complains of: Neurological: Dizziness Gastrointestinal: Bowel Movement; No Nausea, No Vomiting Physical Exam Vital Signs Date Time Temp Pulse Resp B/P (MAP) Pulse Ox O2 Delivery O2 Flow Rate FiO2 05/05/18 03:46 98.7 76 20 125/72 (89) 96 CPAP 5.0 Intake and Output 05/05/18 07:00 Intake Total 2925 ml Output Total 650 ml Balance 2275 ml Intake IV Total 2925 ml Output Urine Total 650 ml # Bowel Movements 5 General Appearance: Alert, Awake, No Acute Distress Neuro: No Gross deficits ENT: Moist Mucous Membranes, Other (Nasal CPAP in place) Cardiovascular: Normal Rhythm & Peripheral Pulses Respiratory: No Respiratory Distress GI: Soft and Non-Tender, Other (obese, well healed previous surgical incisions) Extremities: Soft and Non Tender Integumentary: Skin Intact without Lesion / Mass Result Diagram: 05/05/1828 05/05/18527 Monitor Interpretation: Normal Sinus Rhythm Assessment and Plan Problems: (1) Diverticulitis of intestine with perforation and abscess Status: Acute Assessment & Plan: Diverticulitis: 05/03 (admit): Patient with first time episode of diverticulitis with small mesenteric abscess and focal peritonitis. At this time, the abscess is too small to be drained. Discussed with patient that we will place her on IV antibiotics and fluids with bowel rest. We discussed that were her symptoms not to improve with this management, or we were to find that the abscess was not resolving, she may ultimately require IR drainage. Discussed the potential for surgical intervention, although this is very low probability at this time. She and her had all questions answered. Invanz ordered due to PCN and fluoroquinolone allergy. 05/04: Pain stable but not much improved subjectively. Exam is slightly improved. WBC 12.8 (15.8). Continue NPO with ice chips, bowel rest, IVF @ 125ml/hr and Invanz. OOB TID. Cr normalized to 1.0 05/05: pain resolved, wants to eat. Will place on clears. WBC 11.3 (12.8). Dizziness yesterday stable, nausea improved. Dc rockwell. Time Spent: < 30 min Exam Sepsis Risk: No Definite Risk Problem Qualifiers (1) Diverticulitis of intestine with perforation and abscess: Diverticulitis site: large intestine Diverticulitis bleeding: without bleeding Qualified Codes: K57.20 - Diverticulitis of large intestine with perforation and abscess without bleeding BILL FABIAN MD May 05, 2018 07:03
[2018-05-05 07:07] VITALS: BP 137/59
[2018-05-05] MEDS: ATORVASTATIN 10 MG TAB PO SCH (08:21)
[2018-05-05] MEDS: FENOFIBRATE,MICRON 145 MG TAB PO SCH (08:22)
[2018-05-05] MEDS: amLODIPine BESYL(*) 5 MG TAB PO SCH ×2 (08:22→20:27)
[2018-05-05] MEDS: ENOXAPARIN 40 MG/0.4ML SYR SC SCH (08:22)
[2018-05-05] MEDS: PATIENT'S OWN MED PO SCH (08:22)
[2018-05-05 10:51] VITALS: BP 125/54
--- NOTE | 2018-05-05 15:28 | Medical Nutrition Therapy ---
Nutrition Anthropometrics Height (Inches): 62.50 Height (Calculated Centimeters: 158.483911 Weight (Pounds): 223 Weight (Calculated Kilograms): 101.491 BMI: 40.3 [place] Nutrition Score: Adequate [place] Nutrition Risk Score: 22 Dietary Referral Nutrition Risk Factors: Unplanned Loss >10lbs Nutrition Risk Comment: crohns, Physical Findings Physical Appearance: Morbidly Obese 40+ Skin Appearance Skin Appearance: Edema Edema Location Modifier: Both Edema Location: Type of Edema: Degree of Edema: Gastrointestinal Symptoms GI Symtoms: Nausea Tube Present: Bowel Sounds: Recent Bowel Pattern: Diarrhea Stool Characteristics: Nutritional Diagnosis Nutritional Risk Acuity 3: Nausea, Morbid Obesity Past Medical History: Rheumatic fever, HTN, DVT, PE, DELILAH on CPAP, Chrons Disease, septal defect, heart, appendectomy, hysterectomy, cholecystectomy Nutritional Acuity: 2-Moderate (perforated diverticulitis) Nutrition Diagnosis: Altered GI Function Nutrition Etiology: Physiological Causes Nutrition Problem/Etiology/Sym: AEB dx perforated diverticulitis Adjusted Energy Requirement Re: 2525 (25kcal/kg) Protein Requirement: 91 (.9gm/kg) Fluid Requirement: 2525 (1ml/kcal) Diet Type: Clear Liquids Nutrition Intervention: Incr diet as tolerated Nutrition Monitoring & Eval Nutrition Goals: Eat 75-100% Meal RD Patient Assessment Time: [address] Assessment Type: RD Assessment Patient Nutrition Acuity: 2-Moderate Follow Up Date: May 09, 2018 Nutritional Comment: 1 Pt admitted with Diverticulitis of intestine with perforation and abscess: Pt curretnly NPO. Alb 4. Pt reporting N/V 2 days. Will cont to monitor. BK 05/05 diet advanced to clear liquids. pt cont to report nausea. Will cont to monitor .MARION MENDIOLA May 05, 2018 15:28
[2018-05-05 15:56] VITALS: BP 118/62
[2018-05-05 19:16] VITALS: BP 126/54
[2018-05-05 20:25] VITALS: BP 128/76
[2018-05-05] MEDS: ERTAPENEM(*) 1 GM VIAL 0.5 GM in NS(*) 0.9% 50 ML BAG 50 ML IVPB SCH (20:28)
[2018-05-06 02:20] VITALS: BP 162/66
[2018-05-06] MEDS: BUDESO/FORMOT 80/4.5 MCG 6.9GM INH SCH ×2 (05:31→18:19)
[2018-05-06] MEDS: TIOTROPIUM BROM INH 18 MCG/CAP INH SCH (06:00)
[2018-05-06 07:23] VITALS: BP 145/86
[2018-05-06] MEDS ORDERED: KCL/D1/2NS 20 MEQ 1000 ML 1,000 ML IV PRN (08:41)
--- NOTE | 2018-05-06 08:57 | General Surgery Progress Note ---
Subjective Progress Notes Subjective Feeling better, hungry this AM. BM yesterday. Physical Exam Vital Signs Date Time Temp Pulse Resp B/P (MAP) Pulse Ox O2 Delivery O2 Flow Rate FiO2 05/06/18 07:23 98.8 72 32 145/86 (105) 93 CPAP 05/06/18 02:20 5.0 Intake and Output 05/06/18 07:00 Intake Total 1365 ml Output Total 50 ml Balance 1315 ml Intake Oral 385 ml IV Total 980 ml Output Urine Total 50 ml # Voids 6 # Bowel Movements 2 General Appearance: Alert, Awake, No Acute Distress ENT: Normal Cardiovascular: Normal Rhythm & Peripheral Pulses Respiratory: No Respiratory Distress GI: Soft and Non-Tender, Other (Distended but soft, mild suprapubic tenderness, improved from yesterday. ) Extremities: Soft and Non Tender Integumentary: Skin Intact without Lesion / Mass Psych: Alert & Oriented X3, Appropriate Mood & Affect Result Diagram: 05/05/1852705/05/18527 Monitor Interpretation: Normal Sinus Rhythm Assessment and Plan Problems: (1) Diverticulitis of intestine with perforation and abscess Status: Acute Assessment & Plan: Diverticulitis: 05/03 (admit): Patient with first time episode of diverticulitis with small mesenteric abscess and focal peritonitis. At this time, the abscess is too small to be drained. Discussed with patient that we will place her on IV antibiotics and fluids with bowel rest. We discussed that were her symptoms not to improve with this management, or we were to find that the abscess was not resolving, she may ultimately require IR drainage. Discussed the potential for surgical intervention, although this is very low probability at this time. She and her had all questions answered. Invanz ordered due to PCN and f luoroquinolone allergy. 05/04: Pain stable but not much improved subjectively. Exam is slightly improved. WBC 12.8 (15.8). Continue NPO with ice chips, bowel rest, IVF @ 125ml/hr and Invanz. OOB TID. Cr normalized to 1.0 05/05: pain resolved, wants to eat. Will place on clears. WBC 11.3 (12.8). Dizzine ss yesterday stable, nausea improved. Dc rockwell. 05/06: Pain continues to improve. Advance diet. PT eval. D/c invanz, transition to PO abx. CBC pending, repeat labs in AM. Encourage OOB, ambulatio n. Exam Sepsis Risk: No Definite Risk Problem Qualifiers (1) Diverticulitis of intestine with perforation and abscess: Diverticulitis site: large intestine Diverticulitis bleeding: without bleeding Qualified Codes: K57.20 - Diverticulitis of large intestine with perforation and abscess without bleeding RACHELLE ALEXIS MD May 06, 2018 08:57
[2018-05-06] MEDS ORDERED: D5 1/2 NS 500 ML BAG 500 ML IV ONE (09:00)
[2018-05-06] MEDS ORDERED: D5 1/2 NS(*) 1000 ML BAG 1,000 ML IV SCH (09:25)
[2018-05-06] MEDS: TRIMETH/SULFA DS 160-800MG TAB PO SCH ×2 (09:28→21:17)
[2018-05-06] MEDS: ENOXAPARIN 40 MG/0.4ML SYR SC SCH (09:28)
[2018-05-06] MEDS: FENOFIBRATE,MICRON 145 MG TAB PO SCH (09:29)
[2018-05-06] MEDS: METRONIDAZOLE 500 MG TABLET PO SCH ×3 (09:29→21:17)
[2018-05-06] MEDS: ATORVASTATIN 10 MG TAB PO SCH (09:29)
[2018-05-06] MEDS: PATIENT'S OWN MED PO SCH (09:29)
[2018-05-06] MEDS: amLODIPine BESYL(*) 5 MG TAB PO SCH ×2 (09:29→21:17)
--- NOTE | 2018-05-06 09:31 | Antimicrobial Stewardship ---
Antimicrobial Time Out Antimicrobial Stewardship MD Service: Other (GENERAL SURGERY) Indications: Other (DIVERTICULITIS) Antimicrobial Used ERTAPENEM 500MG QDAY Culture Results: N/A Eligible for PO Conversion Eligable for PO Conversion: Yes (CONVERTED TO PO 05/06/18) Reviewed with Provider Reviewed w/ Provider on Rounds: No Comments Comments PATIENT IMPROVING AND CONVERTED TO PO 05/06/18 (BACTRIM AND FLAGYL) WATSON DEL ANGEL May 06, 2018 09:31
--- NOTE | 2018-05-06 11:04 | NUR ---
Physical Therapy Impression PT eval complete. Pt up in bathroom when PT arrived. Pt ambulates with CGA and use of RW. Alejandra to lift LEs into bed at end of session. SpO2 86% on room air, pt requested donning of CPAP, SpO2 returned to WNL. PT encouraged patient to ambulate with nursing staff. Physical Therapy Goals 1: Pt to complete bed mobility with SBA 2: Pt to complete transfers with SBA and use of least restrictive AD 3: Pt to ambulate 100' with SBA and least restrictive AD 4: Pt to asc/desc 4 stairs with railing and CGA Patient's Goals
[2018-05-06] MEDS: ALBUTEROL 8 GM INHALER INH PRN (13:43)
[2018-05-06 14:54] VITALS: BP 147/69
[2018-05-06 19:02] VITALS: BP 171/74
[2018-05-06 20:20] VITALS: BP 143/70
[2018-05-07 00:20] VITALS: BP 142/65
[2018-05-07 04:29] VITALS: BP 151/78
[2018-05-07] MEDS: TIOTROPIUM BROM INH 18 MCG/CAP INH SCH (06:05)
[2018-05-07] MEDS: BUDESO/FORMOT 80/4.5 MCG 6.9GM INH SCH ×2 (06:06→18:00)
[2018-05-07 07:52] VITALS: BP 135/57
[2018-05-07] MEDS: PATIENT'S OWN MED PO SCH (09:00)
[2018-05-07] MEDS: ATORVASTATIN 10 MG TAB PO SCH (09:30)
[2018-05-07] MEDS: TRIMETH/SULFA DS 160-800MG TAB PO SCH ×2 (09:30→20:49)
[2018-05-07] MEDS: amLODIPine BESYL(*) 5 MG TAB PO SCH ×2 (09:30→20:49)
[2018-05-07] MEDS: FENOFIBRATE,MICRON 145 MG TAB PO SCH (09:30)
[2018-05-07] MEDS: ENOXAPARIN 40 MG/0.4ML SYR SC SCH (09:30)
[2018-05-07] MEDS: METRONIDAZOLE 500 MG TABLET PO SCH ×3 (09:30→20:48)
--- NOTE | 2018-05-07 09:49 | General Surgery Progress Note ---
Subjective Progress Notes Subjective Tolerating diet. Continued suprapubic pain, increased dysuria. Physical Exam Vital Signs Date Time Temp Pulse Resp B/P (MAP) Pulse Ox O2 Delivery O2 Flow Rate FiO2 05/07/18 08:25 Nasal Cannula 2.0 05/07/18 07:52 99.2 72 24 135/57 (83) 95 Intake and Output 05/07/18 07:00 Intake Total 940 ml Balance 940 ml Intake Oral 940 ml # Voids 7 General Appearance: Alert, Awake Neuro: No Gross deficits Eyes: PERRLA ENT: Normal Cardiovascular: Normal Rhythm & Peripheral Pulses Respiratory: No Respiratory Distress GI: Other (Mild suprapubic tenderness, improved from yesterday. ) : Normal Extremities: Soft and Non Tender Integumentary: Skin Intact without Lesion / Mass Psych: Alert & Oriented X3, Appropriate Mood & Affect Result Diagram: 05/07/18 0553 05/07/18 0553 Monitor Interpretation: Normal Sinus Rhythm Assessment and Plan Problems: (1) Diverticulitis of intestine with perforation and abscess Status: Acute Assessment & Plan: Diverticulitis: 05/03 (admit): Patient with first time episode of diverticulitis with small mesenteric abscess and focal peritonitis. At this time, the abscess is too small to be drained. Discussed with patient that we will place her on IV antibiotics and fluids with bowel rest. We discussed that were her symptoms not to improve with this management, or we were to find that the abscess was not resolving, she may ultimately require IR drainage. Discussed the potential for surgical intervention, although this is very low probability at this time. She and her had all questions answered. Invanz ordered due to PCN and fluoroquin olone allergy. 05/04: Pain stable but not much improved subjectively. Exam is slightly improved. WBC 12.8 (15.8). Continue NPO with ice chips, bowel rest, IVF @ 125ml/hr and Invanz. OOB TID. Cr normalized to 1.0 05/05: pain resolved, wants to eat. Will place on clears. WBC 11.3 (12.8). Dizziness yesterday stable, nausea improved. Dc rockwell. 05/06: Pain continues to improve. Advance diet. PT eval. D/c invanz, transition to PO abx. CBC pending, repeat labs in AM. Encourage OOB, ambulation. 05/07: Overall doing better, leukocytosis improved. Ambulated well yesterday. Tolerating PO abx. Increased hypoxia - will SLIV, encourage IS/ambulation. Also with more complaints of dysuria - may be related to location of diverticular inflammation; however will sent UA today. Pt denies hematuria, pneumaturia, but reports significant dysuria today. Repeat labs tomorrow. Exam Sepsis Risk: No Definite Risk Problem Qualifiers (1) Diverticulitis of intestine with perforation and abscess: Diverticulitis site: large intestine Diverticulitis bleeding: without bleeding Qualified Codes: K57.20 - Diverticulitis of large intestine with perforation and abscess without bleeding RACHELLE ALEXIS MD May 07, 2018 09:49
[2018-05-07 14:59] VITALS: BP 164/89
[2018-05-07] MEDS: ALBUTEROL 8 GM INHALER INH PRN (19:00)
[2018-05-07 20:10] VITALS: BP 138/68
[2018-05-08 00:16] VITALS: BP 141/58
[2018-05-08 03:26] VITALS: BP 136/58
[2018-05-08] MEDS: TIOTROPIUM BROM INH 18 MCG/CAP INH SCH (06:13)
[2018-05-08] MEDS: BUDESO/FORMOT 80/4.5 MCG 6.9GM INH SCH (06:14)
[2018-05-08 06:39] VITALS: BP 134/53
[2018-05-08] MEDS ORDERED: SULF1TAB24 PO (07:05)
[2018-05-08] MEDS ORDERED: FLUC100T35 PO (07:05)
--- NOTE | 2018-05-08 07:09 | Short(Outpt) Discharge Summary ---
Discharge Summary Reason for Hosp/Final Diag: (1) Diverticulitis of intestine with perforation and abscess Status: Acute Hospital Course & Plan: Diverticulitis: 05/03 (admit): Patient with first time episode of diverticulitis with small mesenteric abscess and focal peritonitis. At this time, the abscess is too small to be drained. Discussed with patient that we will place her on IV antibiotics and fluids with bowel rest. We discussed that were her symptoms not to improve with this management, or we were to find that the abscess was not resolving, she may ultimately require IR drainage. Discussed the potential for surgical intervention, although this is very low probability at this time. She and her had all questions answered. Invanz ordered due to PCN and fluoroquinolone allergy. 05/04: Pain stable but not much improved subjectively. Exam is slightly improved. WBC 12.8 (15.8). Continue NPO with ice chips, bowel rest, IVF @ 125ml/hr and Invanz. OOB TID. Cr normalized to 1.0 05/05: pain resolved, wants to eat. Will place on clears. WBC 11.3 (12.8). Dizzi ness yesterday stable, nausea improved. Dc rockwell. 05/06: Pain continues to improve. Advance diet. PT eval. D/c invanz, transi tion to PO abx. CBC pending, repeat labs in AM. Encourage OOB, ambulation. 05/07: Overall doing better, leukocytosis improved. Ambulated well yesterday. Tolerating PO abx. Increased hypoxia - will SLIV, encourage IS/ambulation. Also with more complaints of dysuria - may be related to location of diverticular inflammation; however will sent UA today. Pt denies hematuria, pneumaturia, but reports significant dysuria today. Repeat labs tomorrow. Discharge Instructions Home Meds Active Scripts Guaifenesin (MUCINEX) 600 Mg Tablet.er, 600 MG PO BID, #30 TAB 0 Refills Prov:JAVON JIANG MD 06/04/15 Folic Acid (FOLIC ACID) 1 Mg Tablet, 1 MG PO BID, #60 TAB 1 Refill Prov:JAVON JIANG MD 06/04/15 Reported Medications Varenicline Tartrate (CHANTIX) 0.5 Mg Tab, 1 MG PO BID, TAB 05/03/18 Metformin Hcl (METFORMIN HCL) 500 Mg Tablet, 0.5 TAB PO DAILY, TAB 05/03/18 Diphenhydramine Hcl (BENADRYL) 25 Mg Capsule, 25 MG PO BID, CAPSULE 05/03/18 Atorvastatin Calcium (LIPITOR) 10 Mg Tablet, 1 TAB PO QDAY, TAB 07/25/15 Tiotropium [place] (SPIRIVA) 18 Mcg/Cap Inh, 18 MCG INH DAILY, INH 07/25/15 Cholecalciferol (Vitamin D3) (VITAMIN D) 10,000 Unit Capsule, 48230 UNIT PO QWEEKF, CAPSULE 05/19/15 Budesonide/Formoterol Fumarate (SYMBICORT 80-4.5 MCG INHALER) 10.2 Gm Hfa.aer.ad, 10.2 GM IH BID, #2 PUFF 01/16/15 Fenofibrate Nanocrystallized (FENOFIBRATE) 145 Mg Tablet, 145 MG PO QDAY 01/16/15 Warfarin Sodium (COUMADIN) 5 Mg Tablet, 4.5 MG PO QDAY 01/16/15 Amlodipine Besylate (Amlodipine Besylate) 2.5 Mg Tablet, 2.5 MG PO BID, 0 Refills 03/17/11 Furosemide (Lasix) 20 Mg Tab, 20 MG PO QDAY, 0 Refills 03/17/11 Albuterol Sulfate (Proventil Hfa) 6.7 Gm Aer.w.adap, 1-2 PUFF INH QID PRN for SHORTNESS OF BREATH, 0 Refills 03/17/11 Discontinued Reported Medications Armodafinil (Nuvigil) 250 Mg Tablet, 250 MG PO QDAY, 0 Refills 03/17/11 Ibuprofen (IBUPROFEN) 600 Mg Tablet, 1 TAB PO TID PRN for pain, #30 TAB 08/04/15 Phenazopyridine Hcl (PHENAZOPYRIDINE HCL) 200 Mg Tablet, 200 MG PO TID PRN for dysuria, #20 TAB 08/04/15 Famotidine (PEPCID) 20 Mg Tablet, 20 MG PO BID for antacid, #20 TAB 08/04/15 Famotidine (FAMOTIDINE) 20 Mg Tablet, 20 MG PO QDAY, TAB 08/04/15 Acetaminophen/Hydrocodone (HYDROCODON-ACETAMINOPH 7.5-325) 1 Each Ea, 1 EACH PO Q4-6H PRN for pain, #20 EA 08/04/15 Trimethoprim (TRIMETHOPRIM) 100 Mg Tab, 100 MG FT BID, #20 TAB 08/04/15 Diet: Regular Activity: As Tolerated Special Instructions: May f/u with Dr. Beltran in clinic in [place] in 1-2 weeks. May call the clinic in [place] with questions or concerns. Call [phone] to follow-up or discuss care with Dr. Xie or Dr. Stephen. Problem Qualifiers (1) Diverticulitis of intestine with perforation and abscess: Diverticulitis site: large intestine Diverticulitis bleeding: without bleeding Qualified Codes: K57.20 - Diverticulitis of large intestine with perforation and abscess without bleeding RACHELLE STEPHEN MD May 08, 2018 07:09
[2018-05-08] MEDS ORDERED: FLUCONAZOLE 100 MG TAB PO ONE (08:00)
[2018-05-08] MEDS: amLODIPine BESYL(*) 5 MG TAB PO SCH (08:17)
[2018-05-08] MEDS: METRONIDAZOLE 500 MG TABLET PO SCH (08:18)
[2018-05-08] MEDS: ATORVASTATIN 10 MG TAB PO SCH (08:18)
[2018-05-08] MEDS: TRIMETH/SULFA DS 160-800MG TAB PO SCH (08:18)
[2018-05-08] MEDS: PATIENT'S OWN MED PO SCH (08:18)
[2018-05-08] MEDS: FENOFIBRATE,MICRON 145 MG TAB PO SCH (08:19)
[2018-05-08] MEDS: ENOXAPARIN 40 MG/0.4ML SYR SC SCH (08:21)
[2018-05-08] MEDS ORDERED: METR500T15 PO (10:27)
== END 2018-05-08 11:30 | disposition home or self-care (01) | DRG 385 ==
LOC: ER 17:05 → MED 20:14 → INTOOBSV 20:14 → OBSVTOIN 20:14
PROVIDERS: ADMIT Surgery; ATTEND Surgery
PROC: 5A09457 Assistance with Respiratory Ventilation, 24-96 Consecutive Hours, Continuous Positive Airway Pressure (ICD-10-PCS; principal; 2018-05-03)
DX: K50.914 Crohn's disease, unspecified, with abscess (principal); K65.1 Peritoneal abscess; K57.20 Diverticulitis of large intestine with perforation and abscess without bleeding; Z68.41 Body mass index [BMI] 40.0-44.9, adult; E66.01 Morbid (severe) obesity due to excess calories; J44.9 Chronic obstructive pulmonary disease, unspecified; G47.33 Obstructive sleep apnea (adult) (pediatric); I10 Essential (primary) hypertension; F17.210 Nicotine dependence, cigarettes, uncomplicated; Q21.9 Congenital malformation of cardiac septum, unspecified; Z88.1 Allergy status to other antibiotic agents; Z88.0 Allergy status to penicillin; Z88.8 Allergy status to other drugs, medicaments and biological substances; Z86.718 Personal history of other venous thrombosis and embolism; Z86.711 Personal history of pulmonary embolism; Z90.49 Acquired absence of other specified parts of digestive tract; Z90.710 Acquired absence of both cervix and uterus; Z79.01 Long term (current) use of anticoagulants
CPT/HCPCS: 36415; 36600; 71046; 74176; 81001; 82040; 82247; 82310; 82374; 82435; 82565; 82803; 82947; 83605; 83690; 83735; 83880; 84075; 84132; 84155; 84295; 84450; 84460; 84484; 84520; 85025; 85027; 85379; 85610; 85730; 87088; 93005; 94640; 96361; 96365; 96372; 96375; 96376; 97161; 99285; A4353; J1170; J1335; J1650; J2270; J2405; J3010; J3480; J3535; J7030; J7050; Q9967

== ENCOUNTER → 2018-05-15 | Outpatient (CLI) | payer OTHER ==
[2018-05-04 17:00] VITALS: BMI 40.1
[~2018-05-15] MED LIST changes: +DIPH-740 PO; +FLUC100T35 PO; +METR500T15 PO; +SULF1TAB24 PO; +VAR05PT PO
[2018-05-15 14:45] LABS: INR 2.19
== END ==
LOC: LAB 14:17
PROVIDERS: ATTEND Family Medicine
DX: I26.99 Other pulmonary embolism without acute cor pulmonale (principal); I82.409 Acute embolism and thrombosis of unspecified deep veins of unspecified lower extremity
CPT/HCPCS: 36415; 85610

== ENCOUNTER → 2018-05-19 | Outpatient (REF) | payer OTHER ==
[2018-05-04 17:00] VITALS: BMI 40.1
== END ==
LOC: ZZSENDIN 19:13
PROVIDERS: ATTEND Family Medicine
DX: N39.0 Urinary tract infection, site not specified (principal); R82.79 Other abnormal findings on microbiological examination of urine
CPT/HCPCS: 81001; 87088

== ENCOUNTER → 2018-06-13 | Outpatient (CLI) | payer OTHER ==
[2018-05-04 17:00] VITALS: BMI 40.1
--- NOTE | 2018-06-13 11:50 | EKG ---
FACILITY: [facility] PATIENT NAME: JADE GARCIA : [id number] MR: [id number] V: [id number] EXAM DATE: ORDERING PHYSICIAN: HAYDEE SANCHEZ TECHNOLOGIST: Test Reason : abnormal ekg Blood Pressure : / mmHG Vent. Rate : 075 BPM Atrial Rate : 075 BPM P-R Int : 152 ms QRS Dur : 094 ms QT Int : 392 ms P-R-T Axes : 060 050 046 degrees QTc Int : 437 ms Normal sinus rhythm Possible Left atrial enlargement ST and T wave abnormality, non-specific Abnormal ECG When compared with ECG of 05.04.2018 No significant change was found Confirmed by Ino Espino ([id number]) on 06/13/2018 9:46:57 PM Referred By: Confirmed By:Ino Edwards
== END ==
LOC: LAB 11:01
PROVIDERS: ATTEND Family Medicine
DX: E11.9 Type 2 diabetes mellitus without complications (principal); I10 Essential (primary) hypertension; E78.5 Hyperlipidemia, unspecified; R94.31 Abnormal electrocardiogram [ECG] [EKG]
CPT/HCPCS: 36415; 82040; 82043; 82247; 82310; 82374; 82435; 82465; 82565; 82947; 83036; 83718; 84075; 84132; 84155; 84295; 84450; 84460; 84478; 84520; 93005

== ENCOUNTER → 2018-06-19 | Outpatient (CLI) | payer OTHER ==
[2018-05-04 17:00] VITALS: BMI 40.1
[2018-06-19 15:04] LABS: INR 1.88
== END ==
LOC: LAB 13:44
PROVIDERS: ATTEND Family Medicine
DX: I26.99 Other pulmonary embolism without acute cor pulmonale (principal); I82.409 Acute embolism and thrombosis of unspecified deep veins of unspecified lower extremity; D64.9 Anemia, unspecified
CPT/HCPCS: 36415; 85027; 85610

== ENCOUNTER → 2018-07-26 | Outpatient (CLI) | payer OTHER ==
[2018-05-04 17:00] VITALS: BMI 40.1
[2018-07-26 14:06] LABS: INR 2.79
== END ==
LOC: LAB 13:19
PROVIDERS: ATTEND Family Medicine
DX: I26.99 Other pulmonary embolism without acute cor pulmonale (principal)
CPT/HCPCS: 36415; 85610

== ENCOUNTER → 2018-09-06 | Outpatient (CLI) | payer OTHER ==
[2018-05-04 17:00] VITALS: BMI 40.1
[2018-09-06 14:53] LABS: INR 2.77
== END ==
LOC: LAB 14:27
PROVIDERS: ATTEND Family Medicine
DX: I26.99 Other pulmonary embolism without acute cor pulmonale (principal); I82.409 Acute embolism and thrombosis of unspecified deep veins of unspecified lower extremity
CPT/HCPCS: 36415; 85610

== ENCOUNTER 2018-10-12 14:54 | Emergency (ER) | payer OTHER ==
[2018-05-04 17:00] VITALS: Wt 99.8 kg
--- NOTE | 2018-10-12 14:56 | ER Report ---
History and Physical Time Seen By MD: 14:56 HPI/ROS CHIEF COMPLAINT: Rectal bleeding HISTORY OF PRESENT ILLNESS: This is a 63 year old female. She had sudden onset of painless rectal bleeding. Had a little bit of right lower abdominal discomfor t, has had bowel problems including a bowel rupture with medical management and Crohn's disease. No melena. [place] urge to go and had lots of bright red blood in toilet, but no rectal pain. No nausea or vomiting. Has not felt dizzy recently. Has prior history of hemorrhoid bleeding as well. No shortness of breath. No chest pain. No other bleeding or bruising. No fevers or chills, but has been feeling cold recently. Allergies: Coded Allergies: levofloxacin (Verified Allergy, Intermediate, hives for 2 wks, 05/03/18) pt was on vancomycin and levaquin at the same time, she got hives that lasted two weeks, pt doesn't know if it was the vancomycin or levaquin that caused the rash vancomycin (Verified Allergy, Intermediate, RASH, 05/03/18) cephalexin (Verified Allergy, Mild, 05/03/18) iodine (Verified Allergy, Mild, 05/03/18) niacin (Verified Adverse Reaction, Intermediate, 05/03/18) Penicillins (Verified Adverse Reaction, Mild, RASH, 05/03/18) metoclopramide (Verified Adverse Reaction, Mild, N&V, 05/03/18) Home Meds Active Scripts Fluconazole (DIFLUCAN) 100 Mg Tablet, 100 MG PO QDAY for 4 Days, #4 TAB Prov:RACHELLE ALEXIS MD 05/08/18 Sulfamethoxazole/Trimethoprim (SULFAMETHOXAZOLE-TMP DS TABLET) 1 Each Tablet, 1 EACH PO BID for 9 Days, #18 TAB 0 Refills Prov:RACHELLE ALEXIS MD 05/08/18 Guaifenesin (MUCINEX) 600 Mg Tablet.er, 600 MG PO BID, #30 TAB 0 Refills Prov:JAVON JIANG MD 06/04/15 Folic Acid (FOLIC ACID) 1 Mg Tablet, 1 MG PO BID, #60 TAB 1 Refill Prov:JAVON JIANG MD 06/04/15 Reported Medications Metronidazole (METRONIDAZOLE) 500 Mg Tablet, 500 MG PO TID for 9 Days, #27 TAB 05/08/18 Varenicline Tartrate (CHANTIX) 0.5 Mg Tab, 1 MG PO BID, TAB 05/03/18 Metformin Hcl (METFORMIN HCL) 500 Mg Tablet, 0.5 TAB PO DAILY, TAB 05/03/18 Diphenhydramine Hcl (BENADRYL) 25 Mg Capsule, 25 MG PO BID, CAPSULE 05/03/18 Atorvastatin Calcium (LIPITOR) 10 Mg Tablet, 1 TAB PO QDAY, TAB 07/25/15 Tiotropium [place] (SPIRIVA) 18 Mcg/Cap Inh, 18 MCG INH DAILY, INH 07/25/15 Cholecalciferol (Vitamin D3) (VITAMIN D) 10,000 Unit Capsule, 73458 UNIT PO QWEEKF, CAPSULE 05/19/15 Budesonide/Formoterol Fumarate (SYMBICORT 80-4.5 MCG INHALER) 10.2 Gm Hfa.aer.ad, 10.2 GM IH BID, #2 PUFF 01/16/15 Fenofibrate Nanocrystallized (FENOFIBRATE) 145 Mg Tablet, 145 MG PO QDAY 01/16/15 Warfarin Sodium (COUMADIN) 5 Mg Tablet, 4.5 MG PO QDAY 01/16/15 Amlodipine Besylate (Amlodipine Besylate) 2.5 Mg Tablet, 2.5 MG PO BID, 0 Refills 03/17/11 Furosemide (Lasix) 20 Mg Tab, 20 MG PO QDAY, 0 Refills 03/17/11 Albuterol Sulfate (Proventil Hfa) 6.7 Gm Aer.w.adap, 1-2 PUFF INH QID PRN for SHORTNESS OF BREATH, 0 Refills 03/17/11 Reviewed Nurses Notes: Yes Hx Smoking: Yes (1 PPD X 40 YRS.) Smoking Status: Current: Every Day Smoker, Former Smoker Exposure to Second Hand Smoke?: No Hx Substance Use Disorder: No Hx Alcohol Use: No Constitutional Vital Sign - Last 24 Hours 10/12/18 10/12/18 10/12/18 10/12/18 14:59 15:03 15:24 15:54 Temp 98.7 Pulse 92 85 77 Resp 18 B/P (MAP) 193/80 (117) 193/80 Pulse Ox 87 93 O2 Delivery Room Air 10/12/18 10/12/18 10/12/18 10/12/18 16:24 16:30 17:00 17:30 Pulse 71 74 68 71 Pulse Ox 94 93 94 94 10/12/18 10/12/18 10/12/18 10/12/18 17:39 18:00 18:30 18:30 Pulse 75 81 B/P (MAP) 157/70 (99) 151/61 (91) 145/73 (97) 145/73 (97) Pulse Ox 95 92 10/12/18 18:50 Pulse 82 Pulse Ox 84 Physical Exam General Appearance: The patient is alert. No acute distress. Eyes: Pupils are equal, round. No pallor, injection or icterus. ENT: Mucous membranes are moist. Neck: Supple and non tender. Respiratory: Lungs are clear to auscultation. Cardiovascular: Regular rate and rhythm. No murmurs, gallops or rubs. Normal capillary refill. No edema. Gastrointestinal: Abdomen is soft, but with diffuse discomfort, but no focal tenderness. Nondistended. No rebound or guarding. No masses or organomegaly. Normal active bowel sounds. No costovertebral angle tenderness with percussion. Rectal exam: External hemorrhoids present, no bleeding. No masses felt, normal tone, brown stool, nontender. Neurological: Alert and oriented x3. No focal neurologic deficits Skin: Warm and dry. No rashes. No bruising. Musculoskeletal: No back pain. DIFFERENTIAL DIAGNOSIS: After history and physical exam, differential diagnosis was considered for rectal bleeding including but not limited to hemorrhoidal bleeding, her Crohn's's disease, other sources of bleeding such as diverticulosis or diverticulitis. Medical Decision Making Data Points Result Diagram: 10/12/18 1549 10/12/18 1549 Laboratory Hematology Test 10/12/18 15:18 10/12/18 15:49 Stool Occult Blood (IFOB) Positive (NEGATIVE) Red Blood Count 5.46 M/uL (4.17-5.56) Mean Corpuscular Volume 87.4 fL (80.0-96.0) Mean Corpuscular Hemoglobin 30.1 pg (26.0-33.0) Mean Corpuscular Hemoglobin Concent 34.4 g/dL (32.0-36.0) Red Cell Distribution Width 13.4 % (11.5-14.5) Mean Platelet Volume 8.3 fL (7.2-11.1) Neutrophils (%) (Auto) 69.3 % (39.4-72.5) Lymphocytes (%) (Auto) 18.7 % (17.6-49.6) Monocytes (%) (Auto) 7.2 % (4.1-12.4) Eosinophils (%) (Auto) 3.8 % (0.4-6.7) Basophils (%) (Auto) 1.0 % (0.3-1.4) Nucleated RBC Relative Count (auto) 0.1 /100WBC Neutrophils # (Auto) 5.2 K/uL (2.0-7.4) Lymphocytes # (Auto) 1.4 K/uL (1.3-3.6) Monocytes # (Auto) 0.5 K/uL (0.3-1.0) Eosinophils # (Auto) 0.3 K/uL (0.0-0.5) Basophils # (Auto) 0.1 K/uL (0.0-0.1) Nucleated RBC Absolute Count (auto) 0.01 K/uL Prothrombin Time 26.4 seconds (12.0-14.4) Prothromb Time International Ratio 2.38 Activated Partial Thromboplast Time 48 seconds (23-35) Sodium Level 140 mmol/L (137-145) Potassium Level 3.8 mmol/L (3.5-5.0) Chloride Level 104 mmol/L (98-107) Carbon Dioxide Level 27 mmol/L (22-31) Blood Urea Nitrogen 18 mg/dl (7-18) Creatinine 1.10 mg/dl (0.52-1.04) Glomerular Filtration Rate Calc 50.3 Random Glucose 168 mg/dl (75-110) Calcium Level 9.7 mg/dl (8.4-10.2) Total Bilirubin 0.5 mg/dl (0.2-1.3) Aspartate Amino Transf (AST/SGOT) 28 U/L (0-35) Alanine Aminotransferase (ALT/SGPT) 41 U/L (0-56) Alkaline Phosphatase 101 U/L (0-126) Total Protein 8.0 g/dl (6.3-8.2) Albumin 4.2 g/dl (3.5-5.0) Chemistry Test 10/12/18 15:18 10/12/18 15:49 Stool Occult Blood (IFOB) Positive (NEGATIVE) White Blood Count 7.5 k/uL (4.5-11.0) Red Blood Count 5.46 M/uL (4.17-5.56) Hemoglobin 16.4 g/dL (12.0-16.0) Hematocrit 47.7 % (34.0-47.0) Mean Corpuscular Volume 87.4 fL (80.0-96.0) Mean Corpuscular Hemoglobin 30.1 pg (26.0-33.0) Mean Corpuscular Hemoglobin Concent 34.4 g/dL (32.0-36.0) Red Cell Distribution Width 13.4 % (11.5-14.5) Platelet Count 229 K/uL (150-450) Mean Platelet Volume 8.3 fL (7.2-11.1) Neutrophils (%) (Auto) 69.3 % (39.4-72.5) Lymphocytes (%) (Auto) 18.7 % (17.6-49.6) Monocytes (%) (Auto) 7.2 % (4.1-12.4) Eosinophils (%) (Auto) 3.8 % (0.4-6.7) Basophils (%) (Auto) 1.0 % (0.3-1.4) Nucleated RBC Relative Count (auto) 0.1 /100WBC Neutrophils # (Auto) 5.2 K/uL (2.0-7.4) Lymphocytes # (Auto) 1.4 K/uL (1.3-3.6) Monocytes # (Auto) 0.5 K/uL (0.3-1.0) Eosinophils # (Auto) 0.3 K/uL (0.0-0.5) Basophils # (Auto) 0.1 K/uL (0.0-0.1) Nucleated RBC Absolute Count (auto) 0.01 K/uL Prothrombin Time 26.4 seconds (12.0-14.4) Prothromb Time International Ratio 2.38 Activated Partial Thromboplast Time 48 seconds (23-35) Glomerular Filtration Rate Calc 50.3 Calcium Level 9.7 mg/dl (8.4-10.2) Total Bilirubin 0.5 mg/dl (0.2-1.3) Aspartate Amino Transf (AST/SGOT) 28 U/L (0-35) Alanine Aminotransferase (ALT/SGPT) 41 U/L (0-56) Alkaline Phosphatase 101 U/L (0-126) Total Protein 8.0 g/dl (6.3-8.2) Albumin 4.2 g/dl (3.5-5.0) Coagulation Test 10/12/18 15:49 Prothrombin Time 26.4 seconds Prothromb Time International Ratio 2.38 Activated Partial Thromboplast Time 48 seconds EKG/Imaging Imaging EXAMINATION: CT ABDOMEN AND PELVIS WITHOUT CONTRAST COMPARISON: CT 05/03/2018. HISTORY: Rectal bleeding. Abdomen pain. History of Crohn's. PROCEDURE: Multiplanar noncontrast CT of the abdomen and pelvis. One of the following dose optimization techniques was utilized in the performance of this exam: Automated exposure control; adjustment of the mA and/or kV according to the patient's size; or use of an iterative reconstruction technique. Specific details can be referenced in the facility's radiology CT exam operational policy. FINDINGS: Evaluation of the solid and viscus parenchymal organs and vascular structures is limited without the benefit of IV contrast. Visualized thorax: No acute findings. Liver: Enlarged fatty infiltrated liver. Gallbladder and biliary system: Cholecystectomy. No bile duct dilation. Spleen: Negative. Pancreas: Negative. Adrenal glands: Negative. Kidneys and bladder: Negative. Vessels: Aortoiliac moderate atherosclerosis. No abdominal aortic aneurysm. Bowel and mesentery: Stomach is within normal limits. No small bowel obstruction or inflammation. The appendix is not identified in could be surgically absent; no pericecal inflammation. Minimal stool in colon. Left hemicolon mild diverticulosis. No colonic inflammation. Pelvic organs: Negative. Lymph nodes: No adenopathy. Free air/free fluid: None. Musculoskeletal: Bilateral small fat-containing inguinal hernias. L5-S1 moderate degenerative disc disease. Osseous structures appear demineralized. IMPRESSION: 1. No noncontrast CT findings of acute disease in the abdomen or pelvis. 2. Colonic diverticulosis with no evidence of diverticulitis. 3. Hepatic steatosis. 4. Additional chronic/incidental findings as detailed above. Report Dictated By: Arnold Hu MD at 10/12/2018 3:45 PM ED Course/Re-evaluation Clinical Indication for ER IV: Hydration, IV Access ED Course No further bleeding here in the ER. Stable vital signs. Labs stable as noted ab ove. CT scan without acute problem. Discussed with Dr. Sheffield. Then discussed with patient. She would prefer to return home at this time and follow-up as outpatient unless having further problems. Offered hospitalization as well. Decision to Disposition Date: Oct 12, 2018 Decision to Disposition Time: 19:05 Depart Departure Latest Vital Signs Vital Signs Date Time Temp Pulse Resp B/P (MAP) Pulse Ox O2 Delivery O2 Flow Rate FiO2 10/12/18 18:50 82 84 10/12/18 18:30 145/73 (97) 10/12/18 15:03 98.7 18 Room Air Impression: Primary Impression: Rectal bleeding Condition: Improved Disposition: HOME OR SELF-CARE Referrals: HAYDEE SANCHEZ DO (PCP) ERICA SHEFFIELD MD Patient Instructions: Gastrointestinal Bleeding (ED) Additional Instructions: Stop your Warfarin. Call Dr. Sheffield's office tomorrow to schedule an outpatient visit with him. No change in diet until you see Dr. Sheffield. Return to the ER for more bleeding, intractable nausea or vomiting, severe abdominal pain, dizziness. ROBBIE WALKER MD Oct 12, 2018 14:57
[2018-10-12] MEDS ORDERED: NS(*) 0.9% 1000 ML BAG 1,000 ML IV ONE (15:15)
--- NOTE | 2018-10-12 15:57 | RADIOLOGY IMAGING REPORT ---
FACILITY: [facility] [place] PATIENT NAME: Karis Fournier : 1955 MR: [id number] V: [id number] EXAM DATE: ORDERING PHYSICIAN: ROBBIE WALKER TECHNOLOGIST: Location: [facility] [place] Patient: Karis Fournier : 1955 Visit/Account:[id number] Date of Sevice: 10/12/2018 EXAMINATION: CT ABDOMEN AND PELVIS WITHOUT CONTRAST COMPARISON: CT 05/03/2018. HISTORY: Rectal bleeding. Abdomen pain. History of Crohn's. PROCEDURE: Multiplanar noncontrast CT of the abdomen and pelvis. One of the following dose optimizati on techniques was utilized in the performance of this exam: Automated exposure control; adjustment of the mA and/or kV according to the patient's size; or use of an iterative reconstruction technique. Specific details can be referenced in the facility's radiology CT exam operational policy. FINDINGS: Evaluation of the solid and viscus parenchymal organs and vascular structures is limited wi thout the benefit of IV contrast. Visualized thorax: No acute findings. Liver: Enlarged fatty infiltrated liver. Gallbladder and biliary system: Cholecystectomy. No bile duct dilation. Spleen: Negative. Pancreas: Negative. Adrenal glands: Negative. Kidneys and bladder: Negative. Vessels: Aortoiliac moderate atherosclerosis. No abdominal aortic aneurysm. Bowel and mesentery: Stomach is within normal limits. No small bowel obstruction or inflammation. The appendix is not identified in could be surgically absent; no pericecal inflammation. Minimal stool i n colon. Left hemicolon mild diverticulosis. No colonic inflammation. Pelvic organs: Negative. Lymph nodes: No adenopathy. Free air/free fluid: None. Musculoskeletal: Bilateral small fat-containing inguinal hernias. L5-S1 moderate degenerative disc di sease. Osseous structures appear demineralized. IMPRESSION: 1. No noncontrast CT findings of acute disease in the abdomen or pelvis. 2. Colonic diverticulosis with no evidence of diverticulitis. 3. Hepatic steatosis. 4. Additional chronic/incidental findings as detailed above. Report Dictated By: Arnold uH MD at 10/12/2018 3:45 PM Report E-Signed By: Arnold Hu MD at 10/12/2018 3:52 PM WSN:[email or web address]
[2018-10-12 16:04] LABS: PLATELET COUNT, AUTOMATED 229 K/uL (150-450)
[2018-10-12 16:12] LABS: INR 2.38
[2018-10-12 18:30] VITALS: BP 145/73
== END 2018-10-12 19:12 | disposition home or self-care (01) ==
LOC: ER 15:00
DX: K62.5 Hemorrhage of anus and rectum (principal)
CPT/HCPCS: 74176; 82274; 85025; 85610; 85730; 86850; 86900; 86901; 96360; 96361; 99284; J7030; 82040; 82247; 82310; 82374; 82435; 82565; 82947; 84075; 84132; 84155; 84295; 84450; 84460; 84520

== ENCOUNTER → 2018-10-15 | Outpatient (CLI) | payer OTHER ==
[2018-05-04 17:00] VITALS: BMI 40.1
[2018-10-15 14:34] LABS: INR 1.73
== END ==
LOC: LAB 14:08
PROVIDERS: ATTEND Family Medicine
DX: I26.99 Other pulmonary embolism without acute cor pulmonale (principal); I82.409 Acute embolism and thrombosis of unspecified deep veins of unspecified lower extremity
CPT/HCPCS: 36415; 85610

== ENCOUNTER → 2018-10-27 | Outpatient (CLI) | payer OTHER ==
[2018-05-04 17:00] VITALS: BMI 40.1
[~2018-10-27] MED LIST changes: +BARIUM SULFATE 176 GM BTL PO ONE; +BARIUM SULFATE 340 GM POWD ONE
[2018-10-27 09:50] LABS: INR 1.29
--- NOTE | 2018-10-27 13:52 | RADIOLOGY IMAGING REPORT ---
FACILITY: [facility] - [place], [place] PATIENT NAME: Karis Fournier : 1955 MR: [id number] V: [id number] EXAM DATE: ORDERING PHYSICIAN: ERICA SHEFFIELD TECHNOLOGIST: Location: [facility] Patient: Karis Fournier : 1955 Visit/Account:[id number] Date of Sevice: 10/27/2018 Exam type: XR UPPER GI & SM BOWEL History: Rectal bleeding 10/20/2018, has had Crohn's disease for 30 years, left upper quadrant pain Comparison: None. Findings: Double contrast upper GI series was performed with thick and thin barium and air contrast there is a small hiatal hernia although no significant esophageal narrowing or mucosal erosion. Gastroesophagea l reflux was not observed. No abnormality of the stomach duodenal bulb or duodenal C-loop was seen. Barium was then followed throughout the normal-appearing small bowel to the unremarkable terminal il eum. No mucosal abnormalities identified. There is no evidence of bowel dilatation or extrinsic mas s effect. The transit time to the right-sided colon was 60 minutes. The dose area product was 4211. 35 micro-Willett per meter squared IMPRESSION: 1. Small hiatal hernia otherwise unremarkable upper GI series and small bowel follow-through Report Dictated By: Jeannette Mario MD at 10/27/2018 1:43 PM Report E-Signed By: Jeannette Mario MD at 10/27/2018 1:45 PM WSN:[email or web address]
== END ==
LOC: RAD 01:00
PROVIDERS: ATTEND Family Medicine
DX: I74.9 Embolism and thrombosis of unspecified artery (principal); I82.409 Acute embolism and thrombosis of unspecified deep veins of unspecified lower extremity; K44.9 Diaphragmatic hernia without obstruction or gangrene
CPT/HCPCS: 36415; 74245; 85610

== ENCOUNTER 2018-11-01 00:17 | Day surgery (SDC) | payer OTHER ==
[2018-05-04 17:00] VITALS: Ht 157.5 cm; Wt 102.1 kg
[~2018-11-01] VITALS: Ht 157.5 cm; Wt 102.1 kg
[~2018-11-01 00:17] MED LIST changes: -BARIUM SULFATE 176 GM BTL PO ONE; -BARIUM SULFATE 340 GM POWD ONE
[2018-11-01] MEDS ORDERED: PROPOFOL EMUL(*) 10MG/ML 20 ML 20 ML ONE ×3 (07:11→10:27)
[2018-11-01] MEDS ORDERED: NORMOSOL R SOLN(*) 1000 ML BAG 1,000 ML IV PRN (07:40)
[2018-11-01] MEDS ORDERED: LIDOCAINE/SOD BICARB 8.4% SYR ID ONE (07:40)
[2018-11-01 07:45] VITALS: BP 161/68
[2018-11-01 09:03] LABS: INR 1.04
[2018-11-01 11:00] VITALS: BP 124/78
--- NOTE | 2018-11-01 11:08 | Short(Outpt) Discharge Summary ---
Discharge Summary Reason for Hosp/Final Diag: (1) Rectal bleeding Status: Resolved Hospital Course & Plan: Colonoscopy with polypectomy x7 completed without problems. (2) Crohns disease Status: Chronic Departure Discharge to: Home, Self Care Discharge Instructions Home Meds Active Scripts Guaifenesin (MUCINEX) 600 Mg Tablet.er, 600 MG PO BID, #30 TAB 0 Refills Prov:JAVON JIANG MD 06/04/15 Reported Medications Varenicline Tartrate (CHANTIX) 0.5 Mg Tab, 1 MG PO BID, TAB 05/03/18 Metformin Hcl (METFORMIN HCL) 500 Mg Tablet, 0.5 TAB PO DAILY, TAB 05/03/18 Diphenhydramine Hcl (BENADRYL) 25 Mg Capsule, 25 MG PO BID, CAPSULE 05/03/18 Atorvastatin Calcium (LIPITOR) 10 Mg Tablet, 1 TAB PO QDAY, TAB 07/25/15 Tiotropium [place] (SPIRIVA) 18 Mcg/Cap Inh, 18 MCG INH DAILY, INH 07/25/15 Cholecalciferol (Vitamin D3) (VITAMIN D) 10,000 Unit Capsule, 59557 UNIT PO QWEEKF, CAPSULE 05/19/15 Budesonide/Formoterol Fumarate (SYMBICORT 80-4.5 MCG INHALER) 10.2 Gm Hfa.aer.ad, 10.2 GM IH BID, #2 PUFF 01/16/15 Fenofibrate Nanocrystallized (FENOFIBRATE) 145 Mg Tablet, 145 MG PO QDAY 01/16/15 Warfarin Sodium (COUMADIN) 5 Mg Tablet, 4.5 MG PO QDAY 01/16/15 Amlodipine Besylate (Amlodipine Besylate) 2.5 Mg Tablet, 2.5 MG PO BID, 0 Refills 03/17/11 Furosemide (Lasix) 20 Mg Tab, 20 MG PO QDAY, 0 Refills 03/17/11 Albuterol Sulfate (Proventil Hfa) 6.7 Gm Aer.w.adap, 1-2 PUFF INH QID PRN for SHORTNESS OF BREATH, 0 Refills 03/17/11 Discontinued Scripts Folic Acid (FOLIC ACID) 1 Mg Tablet, 1 MG PO BID, #60 TAB 1 Refill Prov:JAVON JIANG MD 06/04/15 Diet: Regular Activity: As Tolerated Special Instructions: Your colonoscopy was completed without problems and your prep was excellent (Good Job!!). I removed 7 polyps from your colon and they were sent to pathology. My office will call you in the next week or two to let you know what the polyps are and when your next colonoscopy should be (likely in 3 or 5 years) depending on the pathology results. Problem Qualifiers (1) Crohns disease: Gastrointestinal tract location: small intestine Digestive disease complication type: without complication Qualified Codes: K50.00 - Crohn's disease of small intestine without complications ERICA SHEFFIELD MD Nov 01, 2018 11:08
[2018-11-01 11:15] VITALS: BP 152/90
[2018-11-01 11:30] VITALS: BP 139/87
[2018-11-01 11:35] VITALS: BP 161/92
== END 2018-11-01 12:00 | disposition home or self-care (01) ==
LOC: OR 00:17
PROVIDERS: ATTEND Surgery
DX: K63.5 Polyp of colon (principal); K62.1 Rectal polyp; K92.2 Gastrointestinal hemorrhage, unspecified; K50.90 Crohn's disease, unspecified, without complications; F17.210 Nicotine dependence, cigarettes, uncomplicated
CPT/HCPCS: 00811; 45385; 85610; 88305; J2704

== ENCOUNTER → 2018-11-13 | Outpatient (CLI) | payer OTHER ==
[2018-05-04 17:00] VITALS: BMI 40.1
[2018-11-13 14:08] LABS: INR 1.46
== END ==
LOC: LAB 13:16
PROVIDERS: ATTEND Family Medicine
DX: E78.5 Hyperlipidemia, unspecified (principal); E11.9 Type 2 diabetes mellitus without complications; J44.9 Chronic obstructive pulmonary disease, unspecified; I82.409 Acute embolism and thrombosis of unspecified deep veins of unspecified lower extremity; I26.99 Other pulmonary embolism without acute cor pulmonale
CPT/HCPCS: 36415; 82040; 82043; 82247; 82310; 82374; 82435; 82465; 82565; 82947; 83036; 83718; 84075; 84132; 84155; 84295; 84450; 84460; 84478; 84520; 85027; 85610

== ENCOUNTER → 2018-12-04 | Outpatient (CLI) | payer OTHER ==
[2018-05-04 17:00] VITALS: BMI 40.1
[2018-12-04 16:16] LABS: INR 2.18
== END ==
LOC: LAB 15:34
PROVIDERS: ATTEND Family Medicine
DX: I26.99 Other pulmonary embolism without acute cor pulmonale (principal); I82.409 Acute embolism and thrombosis of unspecified deep veins of unspecified lower extremity; D64.9 Anemia, unspecified
CPT/HCPCS: 36415; 85027; 85610